=== PATIENT | female | born 1960 | race Hispanic/Latino ===

== ENCOUNTER 2019-04-06 15:28 | Inpatient (IN) | payer MEDICARE ==
--- NOTE | 2019-04-06 17:14 | Emergency Department Report ---
HPI - General Chief Complaint: Dizziness Time Seen by Provider: 04/06/19 16:44 - HPI HPI: Room 7 The patient is a 59-year-old female presenting with a chief complaint of chest pain. The patient is currently at [facility] under a 1013 for schizoaffe ctive disorder and psychosis. The sitter that accompanies the patient states she was sent here for evaluation of low blood pressure and chest pain. Transfer sheet states the patient was sent for "low BP, abnormal EKG, history of CHF." The patient states she had some cramping and bilateral thighs but denies chest pain or shortness of breath. Patient appears disorganized and is not a reliable historian. Location: [See above] Duration: [See above] Quality: [See above] Severity: [See above] Modifying factors: [see above] Context: [see above] Mode of transportation: [not driving] ED Past Medical Hx - Past Medical History Hx Hypertension: Yes Hx Congestive Heart Failure: Yes Hx Psychiatric Treatment: Yes (schizoaffective disorder) Additional medical history: Atrial fibrillation - Surgical History Past Surgical History?: No - Family History Family history: no significant - Social History Smoking Status: Unknown if ever smoked ED Review of Systems ROS: Stated complaint: LOW BP/ARRHYTHMIAS Other details as noted in HPI Comment: Unobtainable due to pts medical conditions Physical Exam - Physical Exam Vital Signs: Vital Signs 04/06/19 04/06/19 16:42 16:46 Pulse Rate 96 H 106 H Respiratory 16 20 Rate O2 Sat by Pulse 100 99 Oximetry Physical Exam: GENERAL: The patient is well-developed well-nourished female lying on stretcher not appearing to be in acute distress. [] HEENT: Normocephalic. Atraumatic. Extraocular motions are intact. Patient has moist mucous membranes. NECK: Supple. Trachea midline CHEST/LUNGS: Clear to auscultation. There is no respiratory distress noted. HEART/CARDIOVASCULAR: Regular. There is no tachycardia. There is no gallop rub or murmur. 2+ DPs bilaterally ABDOMEN: Abdomen is soft, nontender. Patient has normal bowel sounds. There is no abdominal distention. SKIN: There is no rash. There is no edema. There is no diaphoresis. NEURO: The patient is awake and alert but appears disoriented. The patient is cooperative. The patient has normal speech MUSCULOSKELETAL: There is no tenderness or deformity. There is no limitation range of motion. There is no evidence of acute injury. ED Course Vital Signs 04/06/19 04/06/19 16:42 16:46 Pulse Rate 96 H 106 H Respiratory 16 20 Rate O2 Sat by Pulse 100 99 Oximetry ED Medical Decision Making - Lab Data Result diagrams: 04/06/19 17:05 04/06/19 17:05 Laboratory Tests 04/06/19 04/06/19 04/06/19 17:05 17:05 17:05 WBC 7.1 RBC 3.82 Hgb 10.2 Hct 30.5 MCV 80 MCH 27 L MCHC 34 RDW 19.7 H Plt Count 136 L Lymph % (Auto) 20.3 [place] % (Auto) 8.6 H Eos % (Auto) 0.2 Baso % (Auto) 0.3 Lymph # 1.4 [place] # 0.6 Eos # 0.0 Baso # 0.0 Seg Neutrophils % 70.6 H Seg Neutrophils # 5.0 PT 16.4 H INR 1.36 H APTT 30.9 Sodium Potassium Chloride Carbon Dioxide Anion Gap BUN Creatinine Estimated GFR BUN/Creatinine Ratio Glucose Calcium Total Creatine Kinase 8474 H CK-MB (CK-2) 24.3 H CK-MB (CK-2) Rel Index 0.2 Troponin T NT-Pro-B Natriuret Pep 04/06/19 04/06/19 17:05 17:05 WBC RBC Hgb Hct MCV MCH MCHC RDW Plt Count Lymph % (Auto) [place] % (Auto) Eos % (Auto) Baso % (Auto) Lymph # [place] # Eos # Baso # Seg Neutrophils % Seg Neutrophils # PT INR APTT Sodium 137 Potassium 3.9 Chloride 101.3 Carbon Dioxide 23 Anion Gap 17 BUN 31 H Creatinine 1.3 H Estimated GFR 42 BUN/Creatinine Ratio 24 Glucose 123 H Calcium 8.6 Total Creatine Kinase CK-MB (CK-2) CK-MB (CK-2) Rel Index Troponin T < 0.010 NT-Pro-B Natriuret Pep 939.9 H - EKG Data -: EKG Interpreted by Me EKG shows normal: sinus rhythm Rate: normal - EKG Data When compared to previous EKG there are: previous EKG unavailable Interpretation: nonspecific ST-T wave rk (T-wave inversions in leads 2, 3, aVF, V4, V5, V6) - Differential Diagnosis ACS, pericarditis, GERD, psychosis Critical care attestation.: If time is entered above; I have spent that time in minutes in the direct care of this critically ill patient, excluding procedure time. ED Disposition Clinical Impression: Rhabdomyolysis, History of chest pain Disposition: OP ADMIT IP TO THIS HOSP Is pt being admited?: Yes Does the pt Need Aspirin: No Condition: Fair Referrals: ARCHANA CHACONKINDE MD RA [Primary Care Provider] - 3-5 Days Time of Disposition: 20:35 (hospitalist paged (Dr Youssef))
[2019-04-06 17:52] LABS: Creatine Kinase MB 24.3 ng/mL (0.0-4.0)
[2019-04-06 18:05] LABS: Hematocrit 30.5 % (30.3-42.9); Hemoglobin 10.2 gm/dl (10.1-14.3); Mean Corpuscular HGB Conc 34 % (30-34); Mean Corpuscular Volume 80 fl (79-97); Red Blood Count 3.82 M/mm3 (3.65-5.03); Red Cell Distribution Width 19.7 % (13.2-15.2)
[2019-04-06 18:06] LABS: Basophils % (Auto) 0.3 % (0.0-1.8); Eosinophils % (Auto) 0.2 % (0.0-4.3); Lymphocytes # (Auto) 1.4 K/mm3 (1.2-5.4); Lymphocytes % (Auto) 20.3 % (13.4-35.0); Monocytes # (Auto) 0.6 K/mm3 (0.0-0.8); Monocytes % (Auto) 8.6 % (0.0-7.3); Platelet Count 136 K/mm3 (140-440)
[2019-04-06 18:14] LABS: INR 1.36 (0.87-1.13); Partial Thromboplastin Time 30.9 Sec. (24.2-36.6)
--- NOTE | 2019-04-06 19:31 | XRay Report ---
PROCEDURE: XR CHEST 1V AP TECHNIQUE: Chest radiograph single view. HISTORY: chest pain COMPARISONS: None . FINDINGS: Heart: Normal. Mediastinum/Vessels: Normal. Lungs/Pleural space: Normal. Bony thorax: No acute osseous abnormality. Life support devices: None. IMPRESSION: No acute cardiopulmonary abnormality. This document is electronically signed by Sarah Portillo MD., April 06 2019 07:29:47 PM ET
[2019-04-06 20:12] LABS: Calcium 8.6 mg/dL (8.4-10.2)
[2019-04-06] MEDS ORDERED: NACL 0.9% 1000 ML 1,000 ML IV ONE (20:34)
[2019-04-06] MEDS ORDERED: ZOFRAN IV PRN (22:14)
[2019-04-06] MEDS ORDERED: TYLENOL PO PRN (22:14)
[2019-04-06] MEDS ORDERED: SODIUM CHLORIDE FLUSH SYRINGE 10 ML IV PRN (22:14)
--- NOTE | 2019-04-06 22:17 | History and Physical Report ---
History of Present Illness Date of examination: 04/06/19 History of present illness: 59 year old woman with a history of schizoaffective disorder, A. fib, CHF was sent to the emergency room from [place] for evaluation of low blood pressure and abnormal EKG per documentation on chart. The ER physician reported that he was told the patient complained of chest pain while at [place]. Patient states she was transferred from [facility] to [facility] today, she feels fine she denies chest pain. Patient is 1013 at [place] Review of systems Constitutional: no weight loss, chills, fever Ears, eyes, nose, mouth and throat: no nasal congestion, no nasal discharge, no sinus pressure, no vision change, no red eye. Neck: No neck pain or rigidity. Cardiovascular: no palpitations, chest pain Respiratory: no cough, shortness of breath Gastrointestinal: no hematochezia, abdominal pain Genitourinary : no frequency , no hematuria Musculoskeletal: no joint swelling or muscle ache Integumentary: no rash, no pruritis Neurological: no parathesias, no focal weakness Endocrine: no cold or heat intolerance, no polyuria or polydipsia Hematologic/Lymphatic: no easy bruising, no easy bleeding, no gland swelling Allergic/Immunologic: no urticaria, no angioedema. PAST MEDICAL HISTORY: schizoaffective disorder, A. fib, CHF PAST SURGICAL HISTORY: Cyst removal SOCIAL HISTORY:+ alcohol, +tobacco, + marijuana FAMILY HISTORY: Hypertension Medications and Allergies Allergies Allergy/AdvReac Type Severity Reaction Status Date / Time No Known Allergies Allergy Unverified 04/06/19 18:46 Home Medications Medication Instructions Recorded Confirmed Last Taken Type Aspirin BABY CHEW TAB 81 mg PO DAILY 04/06/19 04/06/19 04/06/19 09:00 History Haloperidol 2.5 mg PO Q8H PRN 04/06/19 04/06/19 Unknown History LORazepam 0.5 mg PO Q8H PRN 04/06/19 04/06/19 Unknown History Loratadine 10 mg PO DAILY PRN 04/06/19 04/06/19 Unknown History Metoprolol Xl 25 mg PO DAILY 04/06/19 04/06/19 04/06/19 09:00 History RisperDAL 1 mg PO BID 04/06/19 04/06/19 04/06/19 19:49 History diphenhydrAMINE 25 mg PO Q6H PRN 04/06/19 04/06/19 Unknown History traZODone 25 mg PO QHS PRN 04/06/19 04/06/19 Unknown History Acetaminophen [Acetaminophen TAB] 325 mg PO Q4H PRN #15 tablet 04/11/19 Unknown Rx Furosemide [Lasix TAB] 20 mg PO QDAY #20 tablet 04/11/19 Unknown Rx Lisinopril [Zestril TAB] 2.5 mg PO QDAY #20 tablet 04/11/19 Unknown Rx Metoprolol Xl [Metoprolol 25 mg PO QDAY #30 tablet 04/11/19 Unknown Rx SUCCINATE ER TAB] Potassium Chloride [Klor-Con 8] 8 meq PO QDAY #30 tablet 04/11/19 Unknown Rx Active Meds: Active Medications Enoxaparin Sodium (Lovenox) 30 mg SUB-Q QDAY KWAME Exam - Physical Exam Narrative exam: General Apperance: The patient lying in bed, breathing comfortable HEENT: Normocephalic, atraumatic. Pupils equally round and reactive to light, EOMI, no sclericterus or JVD or thyromegaly or nodule. , no carotid bruit, mucous membranes moist, no exudate or erythema Heart: S1-S2, regular is rhythm Lungs: Clear to auscultation bilaterally, breathing comfortable Abdomen: Positive bowel sounds, soft, nontender, nondistended, no organomegaly Extremities: No edema cyanosis clubbing Skin: no rash, nodule, warm and dry Neuro: cranial nerves 2-12 intact, speech is fluent, motor/sensory intact - Constitutional Vitals: Temp Pulse Resp BP Pulse Ox 98.8 F 114 H 16 106/51 100 04/06/19 17:46 04/06/19 18:30 04/06/19 18:30 04/06/19 18:30 04/06/19 18:30 Results - Labs CBC & Chem 7: 04/09/19 06:02 04/09/19 06:02 Labs: Abnormal lab results 04/06/19 04/06/19 04/06/19 Range/Units 17:05 17:05 17:05 MCH 27 L (28-32) pg RDW 19.7 H (13.2-15.2) % Plt Count 136 L (140-440) K/mm3 [place] % (Auto) 8.6 H (0.0-7.3) % Seg Neutrophils % 70.6 H (40.0-70.0) % PT 16.4 H (12.2-14.9) Sec. INR 1.36 H (0.87-1.13) BUN (7-17) mg/dL Creatinine (0.7-1.2) mg/dL Glucose (65-100) mg/dL Total Creatine Kinase 8474 H (30-135) units/L CK-MB (CK-2) 24.3 H (0.0-4.0) ng/mL NT-Pro-B Natriuret Pep (0-900) pg/mL 04/06/19 04/06/19 Range/Units 17:05 17:05 MCH (28-32) pg RDW (13.2-15.2) % Plt Count (140-440) K/mm3 [place] % (Auto) (0.0-7.3) % Seg Neutrophils % (40.0-70.0) % PT (12.2-14.9) Sec. INR (0.87-1.13) BUN 31 H (7-17) mg/dL Creatinine 1.3 H (0.7-1.2) mg/dL Glucose 123 H (65-100) mg/dL Total Creatine Kinase (30-135) units/L CK-MB (CK-2) (0.0-4.0) ng/mL NT-Pro-B Natriuret Pep 939.9 H (0-900) pg/mL - Imaging and Cardiology EKG: image reviewed Chest x-ray: report reviewed Assessment and Plan Assessment Relative Hypotension Rhabdomyolysis Possible chest pain Schizoaffective disorder h/o A. fib CHF, stable Plan Admit to medicine Start gentle IV fluid, check cardiac enzymes Consult cardiology will hold antihypertensives Check urinalysis, blood culture, empiric IV Rocephin DVT prophylaxis
[2019-04-06] MEDS ORDERED: NACL 0.9% 1000 ML 1,000 ML ONE (22:24)
[2019-04-06] MEDS ORDERED: CEFTRIAXONE IV SCH (23:00)
[2019-04-06] MEDS ORDERED: NACL 0.9% IV SCH (23:00)
[2019-04-07] MEDS: NACL 0.45% 1000 ML 1,000 ML IV SCH (00:16)
[2019-04-07 00:40] LABS: Creatine Kinase MB 12.6 ng/mL (0.0-4.0)
[2019-04-07 05:10] LABS: Basophils % (Auto) 0.2 % (0.0-1.8); Eosinophils % (Auto) 0.8 % (0.0-4.3); Hematocrit 26.6 % (30.3-42.9); Hemoglobin 8.9 gm/dl (10.1-14.3); Lymphocytes # (Auto) 1.2 K/mm3 (1.2-5.4); Lymphocytes % (Auto) 20.6 % (13.4-35.0); Mean Corpuscular HGB Conc 34 % (30-34); Mean Corpuscular Volume 80 fl (79-97); Monocytes # (Auto) 0.6 K/mm3 (0.0-0.8); Monocytes % (Auto) 9.5 % (0.0-7.3); Platelet Count 115 K/mm3 (140-440); Red Blood Count 3.33 M/mm3 (3.65-5.03); Red Cell Distribution Width 19.3 % (13.2-15.2)
[2019-04-07 05:21] LABS: Creatine Kinase MB 8.6 ng/mL (0.0-4.0)
[2019-04-07 05:46] LABS: BUN/Creatinine Ratio 32; Blood Urea Nitrogen 29 mg/dL (7-17); Calcium 8.3 mg/dL (8.4-10.2); Hemolysis Index 4
[2019-04-07] MEDS: BABY ASPIRIN PO SCH (09:14)
[2019-04-07] MEDS: RisperDAL PO SCH ×2 (09:14→21:26)
[2019-04-07] MEDS: SODIUM CHLORIDE FLUSH SYRINGE 10 ML IV SCH ×2 (09:24→21:26)
[2019-04-07] MEDS ORDERED: LOVENOX SUB-Q SCH (10:00)
[2019-04-07] MEDS: ROCEPHIN/NS 1 GM/50 ML 1 GM/50 ML BAG IV SCH (10:45)
--- NOTE | 2019-04-07 11:44 | Consultation ---
History of Present Illness Consult date: 04/07/19 Consult reason: chest pain History of present illness: Patient is a 59-year old woman that was transferred to the emergency department from [place] with hypotension, blood pressure of 88/50. A cardiac consultation has been requested for chest pain evaluation. Patient denies chest pain. Patient denies shortness of breath and palpitations. There was no syncope. Cardiac enzymes shows an elevated CK of 8474 but a normal relative index of 0.2 cons istent with rhabdomyolysis. An EKG is sinus rhythm with non-specific [place] abnormalities. Patient gives a history of nonischemic cardiomyopathy by cardiac cath done a year ago at [place] that documents normal coronaries but a decreased left ventricular ejection fraction of 10%. Patient is followed by the Heart Failure clinic at [place] and reports she was recommended for an ICD placement but she declined. Medications and Allergies Allergies Allergy/AdvReac Type Severity Reaction Status Date / Time No Known Allergies Allergy Unverified 04/06/19 18:46 Home Medications Medication Instructions Recorded Confirmed Last Taken Type Aspirin BABY CHEW TAB 81 mg PO DAILY 04/06/19 04/06/19 04/06/19 09:00 History Cepacol Sorethroat-Cough Mila 1 lozenge PO Q3HR PRN 04/06/19 04/06/19 Unknown History Diphenhydramine HCl 25 mg IM Q6H PRN 04/06/19 04/06/19 Unknown History Haldol 2 mg IM Q8H PRN 04/06/19 04/06/19 Unknown History Haloperidol 2.5 mg PO Q8H PRN 04/06/19 04/06/19 Unknown History Imodium 2 mg PO Q6H PRN 04/06/19 04/06/19 Unknown History LORazepam 0.5 mg IM Q8H PRN 04/06/19 04/06/19 Unknown History LORazepam 0.5 mg PO Q8H PRN 04/06/19 04/06/19 Unknown History Loratadine 10 mg PO DAILY PRN 04/06/19 04/06/19 Unknown History Maalox Advanced Suspension 5 ml PO Q2HR PRN 04/06/19 04/06/19 Unknown History Metoprolol Xl 25 mg PO DAILY 04/06/19 04/06/19 04/06/19 09:00 History Milk of Magnesia 30 ml PO DAILY PRN 04/06/19 04/06/19 Unknown History Promethazine 25 mg PO Q4H PRN 04/06/19 04/06/19 Unknown History RisperDAL 1 mg PO BID 04/06/19 04/06/19 04/06/19 19:49 History Spironolactone [Aldactone] 25 mg PO DAILY 04/06/19 04/06/19 04/06/19 09:00 History cloNIDine 0.1 mg PO Q8H PRN 04/06/19 04/06/19 Unknown History diphenhydrAMINE 25 mg PO Q6H PRN 04/06/19 04/06/19 Unknown History hydrOXYzine 25 mg PO Q8H PRN 04/06/19 04/06/19 Unknown History traZODone 25 mg PO QHS PRN 04/06/19 04/06/19 Unknown History Active Meds: Active Medications Acetaminophen (Tylenol) 650 mg PO Q4H PRN PRN Reason: Pain MILD(1-3)/Fever >100.5/MICHAEL Aspirin (Baby Aspirin) 81 mg PO DAILY [facility] Last Admin: 04/07/19 09:14 Dose: 81 mg Documented by: Sodium Chloride (Nacl 0.45% 1000 Ml) 1,000 mls @ 50 mls/hr IV DIRECT [facility] Last Admin: 04/07/19 00:16 Dose: 50 mls/hr Documented by: Ceftriaxone Sodium (Rocephin/Ns 1 Gm/50 Ml) 1 gm in 50 mls @ 100 mls/hr IV Q24HR [facility] Last Admin: 04/07/19 10:45 Dose: 100 mls/hr Documented by: Ondansetron HCl (Zofran) 4 mg IV Q8H PRN PRN Reason: Nausea And Vomiting Risperidone (Risperdal) 1 mg PO BID [facility] Last Admin: 04/07/19 09:14 Dose: 1 mg Documented by: Sodium Chloride (Sodium Chloride Flush Syringe 10 Ml) 10 ml IV BID [facility] Last Admin: 04/07/19 09:24 Dose: 10 ml Documented by: Sodium Chloride (Sodium Chloride Flush Syringe 10 Ml) 10 ml IV PRN PRN PRN Reason: LINE FLUSH Physical Examination Vital Signs Pulse Resp Pulse Ox 96 H 16 100 04/06/19 16:42 04/06/19 16:42 04/06/19 16:42 General appearance: no acute distress HEENT: Positive: PERRL Neck: Positive: trachea midline Cardiac: Positive: Reg Rate and Rhythm Lungs: Positive: Decreased Breath Sounds Neuro: Positive: Grossly Intact Extremities: Absent: edema Results 04/07/19 04:35 04/07/19 04:35 Cardiac Enzymes 04/06/19 04/07/19 Range/Units 17:05 04:35 CK-MB (CK-2) 24.3 H 8.6 H (0.0-4.0) ng/mL Coagulation 04/06/19 Range/Units 17:05 PT 16.4 H (12.2-14.9) Sec. INR 1.36 H (0.87-1.13) APTT 30.9 (24.2-36.6) Sec. CBC 04/06/19 04/07/19 Range/Units 17:05 04:35 WBC 7.1 5.9 (4.5-11.0) K/mm3 RBC 3.82 3.33 L (3.65-5.03) M/mm3 Hgb 10.2 8.9 L (10.1-14.3) gm/dl Hct 30.5 26.6 L (30.3-42.9) % Plt Count 136 L 115 L (140-440) K/mm3 Lymph # 1.4 1.2 (1.2-5.4) K/mm3 [place] # 0.6 0.6 (0.0-0.8) K/mm3 Eos # 0.0 0.0 (0.0-0.4) K/mm3 Baso # 0.0 0.0 (0.0-0.1) K/mm3 Comprehensive Metabolic Panel 04/06/19 04/07/19 Range/Units 17:05 04:35 Sodium 137 138 (137-145) mmol/L Potassium 3.9 3.6 (3.6-5.0) mmol/L Chloride 101.3 106.2 (98-107) mmol/L Carbon Dioxide 23 21 L (22-30) mmol/L BUN 31 H 29 H (7-17) mg/dL Creatinine 1.3 H 0.9 (0.7-1.2) mg/dL Glucose 123 H 150 H (65-100) mg/dL Calcium 8.6 8.3 L (8.4-10.2) mg/dL Assessment and Plan Hypotension Schizophrenia Rhabdomyolysis
--- NOTE | 2019-04-07 14:51 | Progress Note ---
Assessment and Plan Assessment and plan: Patient is a 59 yo woman with a history of Dilated Non ischemic Cardiomyopathy, CHF, EF 16%, Schizophrenia who was transferred from [facility] facility because of low blood pressure, 88/50. Cardiac enzymes shows an elevated CK of 8474 but a normal relative index of 0.2 consistent with rhabdomyolysis. Assessment Relative Hypotension Rhabdomyolysis Possible chest pain Schizoaffective disorder h/o A. fib CHF, stable Plan Admit to medicine Start gentle IV fluid, check cardiac enzymes Consult cardiology will hold antihypertensives Check urinalysis, blood culture, empiric IV Rocephin DVT prophylaxis d/c back to psych once rhabdo resolves consult Psych History Interval history: Patient was seen and examined. Follow-up on current diagnosis. No new issues reported to me. Patient denies any chest pain, shortness breath, nausea/vomiting or severe headaches. Imaging, nursing note, chart, labs and old chart reviewed. Discussed with patient. Hospitalist Physical - Physical exam Narrative exam: Gen: WDWN, NAD, Awake, Alert, Orientated HEENT: NCAT, EOMI, PERRL, OP Clear Neck: supple, no adenopathy, no thyromegaly, no JVD CVS/Heart: RRR, normal S1S2, pulses present bilaterally Chest/Lungs: CTA B, Symmetrical chest expansion, good air entry bilaterally GI/Abdomen: soft, NTND, good bowel sounds, no guarding or rebound /Bladder: no suprapubic tenderness, no CVA or paraspinal tenderness Extermity/Skin: no c/c/e, no obvious rash MSK: FROM x 4 Neuro: CN 2-12 grossly intact, no new focal deficits Psych: calm - Constitutional Vitals: Temp Pulse Resp BP Pulse Ox 98.9 F 102 H 16 101/51 98 04/07/19 08:55 04/07/19 08:55 04/07/19 08:55 04/07/19 08:55 04/07/19 11:28 General appearance: Present: no acute distress Results - Labs CBC & Chem 7: 04/07/19 04:35 04/07/19 04:35 Labs: Laboratory Last Values WBC 5.9 K/mm3 (4.5-11.0) 04/07/19 04:35 RBC 3.33 M/mm3 (3.65-5.03) L 04/07/19 04:35 Hgb 8.9 gm/dl (10.1-14.3) L 04/07/19 04:35 Hct 26.6 % (30.3-42.9) L 04/07/19 04:35 MCV 80 fl (79-97) 04/07/19 04:35 MCH 27 pg (28-32) L 04/07/19 04:35 MCHC 34 % (30-34) 04/07/19 04:35 RDW 19.3 % (13.2-15.2) H 04/07/19 04:35 Plt Count 115 K/mm3 (140-440) L 04/07/19 04:35 Lymph % (Auto) 20.6 % (13.4-35.0) 04/07/19 04:35 [place] % (Auto) 9.5 % (0.0-7.3) H 04/07/19 04:35 Eos % (Auto) 0.8 % (0.0-4.3) 04/07/19 04:35 Baso % (Auto) 0.2 % (0.0-1.8) 04/07/19 04:35 Lymph # 1.2 K/mm3 (1.2-5.4) 04/07/19 04:35 [place] # 0.6 K/mm3 (0.0-0.8) 04/07/19 04:35 Eos # 0.0 K/mm3 (0.0-0.4) 04/07/19 04:35 Baso # 0.0 K/mm3 (0.0-0.1) 04/07/19 04:35 Seg Neutrophils % 68.9 % (40.0-70.0) 04/07/19 04:35 Seg Neutrophils # 4.1 K/mm3 (1.8-7.7) 04/07/19 04:35 PT 16.4 Sec. (12.2-14.9) H 04/06/19 17:05 INR 1.36 (0.87-1.13) H 04/06/19 17:05 APTT 30.9 Sec. (24.2-36.6) 04/06/19 17:05 Sodium 138 mmol/L (137-145) 04/07/19 04:35 Potassium 3.6 mmol/L (3.6-5.0) 04/07/19 04:35 Chloride 106.2 mmol/L (98-107) 04/07/19 04:35 Carbon Dioxide 21 mmol/L (22-30) L 04/07/19 04:35 14 mmol/L 04/07/19 04:35 BUN 29 mg/dL (7-17) H 04/07/19 04:35 0.9 mg/dL (0.7-1.2) 04/07/19 04:35 Estimated GFR > 60 ml/min 04/07/19 04:35 32 % 04/07/19 04:35 Glucose 150 mg/dL (65-100) H 04/07/19 04:35 Calcium 8.3 mg/dL (8.4-10.2) L 04/07/19 04:35 5754 units/L (30-135) H 04/07/19 04:35 CK-MB (CK-2) 8.6 ng/mL (0.0-4.0) H 04/07/19 04:35 CK-MB (CK-2) Rel Index 0.1 (0-4) 04/07/19 04:35 < 0.010 ng/mL (0.00-0.029) 04/07/19 04:35 NT-Pro-B Natriuret Pep 939.9 pg/mL (0-900) H 04/06/19 17:05 Active Medications - Current Medications Current Medications: Generic Name Dose Route Start Last Admin Trade Name Freq PRN Reason Stop Dose Admin Acetaminophen 650 mg 04/06/19 22:14 Tylenol PO Q4H PRN Pain MILD(1-3)/Fever >100.5/MICHAEL Aspirin 81 mg 04/07/19 10:00 04/07/19 09:14 Baby Aspirin PO 81 mg DAILY KWAME Administration Sodium Chloride 1,000 mls @ 50 mls/hr 04/06/19 23:00 04/07/19 00:16 Nacl 0.45% 1000 Ml IV 50 mls/hr DIRECT KWAME Administration Ceftriaxone Sodium 1 gm in 50 mls @ 100 mls/hr 04/07/19 10:00 04/07/19 10:45 Rocephin/Ns 1 Gm/50 Ml IV 100 mls/hr Q24HR KWAME Administration Ondansetron HCl 4 mg 04/06/19 22:14 Zofran IV Q8H PRN Nausea And Vomiting Risperidone 1 mg 04/07/19 10:00 04/07/19 09:14 Risperdal PO 1 mg BID KWAME Administration Sodium Chloride 10 ml 04/07/19 10:00 04/07/19 09:24 Sodium Chloride Flush Syringe 10 Ml IV 10 ml BID KWAME Administration Sodium Chloride 10 ml 04/06/19 22:14 Sodium Chloride Flush Syringe 10 Ml IV PRN PRN LINE FLUSH
[2019-04-07 19:30] LABS: Bacteria,Urine 1+ /HPF (Negative); Bilirubin,Urine NEG (Negative); Blood,Urine NEG (Negative); Color,Urine Yellow (Yellow); Mucus,Urine FEW /HPF; Protein,Urine <15 mg/dL mg/dL (Negative)
[2019-04-08] MEDS ORDERED: RESTORIL PO PRN (00:26)
--- NOTE | 2019-04-08 10:12 | Progress Note ---
<MONICA GASTON - Last Filed: 04/08/19 10:08> Assessment and Plan Hypotension -resolved Schizophrenia Rhabdomyolysis Hx of dilated nonischemic cardiomyopathy LHC at [facility], [place] 04/2018 reports angiographically normal coronary arteries. Echocardiogram done 12/2018 at [place] reported a left ventricular systolic ejection fraction of 16%. Her medical records from [place] show that she has been offered an ICD implant in the past but declined. Recommendations: Medical therapy for chronic systolic heart failure as her blood pressure will allow. Otherwise, conservative cardiac management. Subjective Date of service: 04/08/19 Interval history: Patient is resting in bed comfortably. She has no complaints. BP currently 119/63. Objective Vital Signs Temp Pulse Pulse Resp BP Pulse Ox 04/08/19 05:57 98.9 F 119 H 20 119/63 99 04/07/19 23:42 99.4 F 115 H 20 120/53 94 04/07/19 22:15 105 H 18 98 04/07/19 20:19 99.9 F H 105 H 20 104/51 98 04/07/19 19:38 88 04/07/19 16:00 105 H 04/07/19 15:55 100.0 F H 91 H 14 107/47 98 04/07/19 12:03 98.7 F 91 H 18 98 04/07/19 12:02 98.7 F 87 18 93/43 99 04/07/19 11:28 98 - Physical Examination General: No Apparent Distress HEENT: Positive: PERRL Neck: Positive: trachea midline Cardiac: Positive: Reg Rate and Rhythm Lungs: Positive: Decreased Breath Sounds Neuro: Positive: Grossly Intact Extremities: Absent: edema <DICK DHALIWAL - Last Filed: 04/08/19 12:27> Assessment and Plan I have seen and evaluated the patient and agree with the assessment and plan. Patient has a history of dilated nonischemic cardiomyopathy. Patient had a left heart catheterization April 2018 that showed angiographically normal coronary arteries. Patient's most recent echocardiogram done December 2018 shows left ventricular systolic ejection fraction of 16%. On interviewing the patient she seems very confused and is not able to hold a coherent conversation as it relates to her medical health. At this time we'll continue current medical therapy for chronic systolic heart failure. Patient is not able to well- tolerated her medications at this time due to hypotension, which is likely due to her severe cardiomyopathy. Objective Vital Signs Temp Pulse Pulse Resp BP Pulse Ox 04/08/19 11:47 98 04/08/19 08:00 112 H 107 H 04/08/19 05:57 98.9 F 119 H 20 119/63 99 04/07/19 23:42 99.4 F 115 H 20 120/53 94 04/07/19 22:15 105 H 18 98 04/07/19 20:19 99.9 F H 105 H 20 104/51 98 04/07/19 19:38 88 04/07/19 16:00 105 H 04/07/19 15:55 100.0 F H 91 H 14 107/47 98
[2019-04-08] MEDS: RisperDAL PO SCH ×2 (10:49→21:33)
[2019-04-08] MEDS: BABY ASPIRIN PO SCH (10:49)
[2019-04-08] MEDS: SODIUM CHLORIDE FLUSH SYRINGE 10 ML IV SCH (10:50)
[2019-04-08] MEDS: ROCEPHIN/NS 1 GM/50 ML 1 GM/50 ML BAG IV SCH (10:50)
--- NOTE | 2019-04-08 13:17 | Consultation ---
History of Present Illness - Reason for Consult Consult date: 04/08/19 Reason for consult: psychiatric evaluation - Chief Complaint Chief complaint: "I was sent here." - History of Present Psychiatric Illness 59 year old AAF seen for psychiatric evaluation on the telemetry floor. She has a history of Dilated Non ischemic Cardiomyopathy, CHF, EF 16%, Schizophrenia who was transferred from [place] [facility] facility because of low blood pressure, 88/50. CK of 8474 and admitted for rhabdomyolysis. CK is trending down. She discussed her history and spoke of the recent situation at home. She states on Saturday she remembers she tried to speak but nothing came out. She states this has never happened before. She states she was frustrated at home with her children this past weekend because they do not respect her in her own home. She also says she does not have an outlet and needs a counselor. She says her "thoughts were running wild" and then she went to [place]. At the time she says she was not aware it was a psychiatric hospital but became aware yesterday. She reports being diagnosed with paranoid schizophrenia years ago but it was changed to schizoaffective disorder, depressive type. She last saw a psychiatrist one year ago. She reports hearing voices daily and sometimes louder than other times. She says sometimes the tv talks to her. Medications and Allergies Allergies Allergy/AdvReac Type Severity Reaction Status Date / Time No Known Allergies Allergy Unverified 04/06/19 18:46 Home Medications Medication Instructions Recorded Confirmed Last Taken Type Aspirin BABY CHEW TAB 81 mg PO DAILY 04/06/19 04/06/19 04/06/19 09:00 History Cepacol Sorethroat-Cough Mila 1 lozenge PO Q3HR PRN 04/06/19 04/06/19 Unknown History Diphenhydramine HCl 25 mg IM Q6H PRN 04/06/19 04/06/19 Unknown History Haldol 2 mg IM Q8H PRN 04/06/19 04/06/19 Unknown History Haloperidol 2.5 mg PO Q8H PRN 04/06/19 04/06/19 Unknown History Imodium 2 mg PO Q6H PRN 04/06/19 04/06/19 Unknown History LORazepam 0.5 mg IM Q8H PRN 04/06/19 04/06/19 Unknown History LORazepam 0.5 mg PO Q8H PRN 04/06/19 04/06/19 Unknown History Loratadine 10 mg PO DAILY PRN 04/06/19 04/06/19 Unknown History Maalox Advanced Suspension 5 ml PO Q2HR PRN 04/06/19 04/06/19 Unknown History Metoprolol Xl 25 mg PO DAILY 04/06/19 04/06/19 04/06/19 09:00 History Milk of Magnesia 30 ml PO DAILY PRN 04/06/19 04/06/19 Unknown History Promethazine 25 mg PO Q4H PRN 04/06/19 04/06/19 Unknown History RisperDAL 1 mg PO BID 04/06/19 04/06/19 04/06/19 19:49 History Spironolactone [Aldactone] 25 mg PO DAILY 04/06/19 04/06/19 04/06/19 09:00 History cloNIDine 0.1 mg PO Q8H PRN 04/06/19 04/06/19 Unknown History diphenhydrAMINE 25 mg PO Q6H PRN 04/06/19 04/06/19 Unknown History hydrOXYzine 25 mg PO Q8H PRN 04/06/19 04/06/19 Unknown History traZODone 25 mg PO QHS PRN 04/06/19 04/06/19 Unknown History Active Meds: Active Medications Acetaminophen (Tylenol) 650 mg PO Q4H PRN PRN Reason: Pain MILD(1-3)/Fever >100.5/MICHAEL Aspirin (Baby Aspirin) 81 mg PO DAILY [facility] Last Admin: 04/08/19 10:49 Dose: 81 mg Documented by: Sodium Chloride (Nacl 0.45% 1000 Ml) 1,000 mls @ 50 mls/hr IV DIRECT [facility] Last Admin: 04/07/19 00:16 Dose: 50 mls/hr Documented by: Ceftriaxone Sodium (Rocephin/Ns 1 Gm/50 Ml) 1 gm in 50 mls @ 100 mls/hr IV Q24HR [facility] Last Admin: 04/08/19 10:50 Dose: 100 mls/hr Documented by: Ondansetron HCl (Zofran) 4 mg IV Q8H PRN PRN Reason: Nausea And Vomiting Risperidone (Risperdal) 1 mg PO BID [facility] Last Admin: 04/08/19 10:49 Dose: 1 mg Documented by: Sodium Chloride (Sodium Chloride Flush Syringe 10 Ml) 10 ml IV BID [facility] Last Admin: 04/08/19 10:50 Dose: 10 ml Documented by: Sodium Chloride (Sodium Chloride Flush Syringe 10 Ml) 10 ml IV PRN PRN PRN Reason: LINE FLUSH Temazepam (Restoril) 15 mg PO QHS PRN PRN Reason: Sleep Past psychiatric history - past Psychiatric treatment and history Psych: Schizophrenia psychiatric treatment history: last saw a psychiatrist one year ago. diagnosed with schizophrenia years ago and was changed to schizoaffective disorder - Social History Social history: lives with family Mental Status Exam - Vital signs Last Vital Signs Temp 98.9 F 04/08/19 05:57 Pulse 107 H 04/08/19 08:00 Resp 20 04/08/19 05:57 BP 119/63 04/08/19 05:57 Pulse Ox 98 04/08/19 11:47 - Exam Orientation: time, place, person Affect: normal Mood: calm Thought content: other (says tv talks to her sometimes) Thought Process: Loose Associations (mild, mostly linear) Perceptions: auditory (chronic. non command) Speech: slurring Concentration: distractible Motor activity: normal Level of consciousness: alert Memory: Intact (she recalls the weekend but did not know she was at a psychiatric hospital until yesterday) Sleep Symptoms: None Interaction: cooperative Results Result Diagrams: 04/07/19 04:35 04/07/19 04:35 Abnormal lab results 04/07/19 Range/Units 18:45 Urine WBC (Auto) 150.0 H (0.0-6.0) /HPF All other labs normal. Assessment and Plan Assessment and plan: Impression: disorganized thought process likely improving schizoaffective disorder, unspecified by history rhabdomyolysis addressed by medical team She reports an episode of attempting to speak but "nothing came out" on 04/05. She states this never occurred before. Her nurse, Mariya, was informed. Recommendations: Her ck is trending down and she is not having adverse effects to risperdal. The benefit of continuing it at 1mg bid is greater than the risks. Continue 1013 dispo: psych will see daily to for medication management and to determine if she continues to meet criteria for 1013. The current plan is for her to go to an inpatient psychiatric facility staffed with Dr. Figueroa
[2019-04-08] MEDS: NACL 0.45% 1000 ML 1,000 ML IV SCH (14:13)
--- NOTE | 2019-04-08 15:59 | Progress Note ---
Assessment and Plan Assessment and plan: Patient is a 59 yo woman with a history of Dilated Non ischemic Cardiomyopathy, CHF, EF 16%, Schizophrenia who was transferred from [place] [facility] facility because of low blood pressure, 88/50. Cardiac enzymes shows an elevated CK of 8474 but a normal relative index of 0.2 consistent with rhabdomyolysis. Relative Hypotension, resolved: hold antihypertensives Rhabdomyolysis: continue to treat with ivf, daily CPK levels, Patient denies any chest pain: continue to monitor Schizoaffective disorder: psych team is following, on 1012 with a sitter h/o A. fib: tele monitor advised but pt refuses to keep monitor on. h/o CHF, stable: closely monitor on IVFs d/c back to inpatient psych once rhabdo resolves, CPK <1000 History Interval history: Patient was seen and examined. Follow-up on current diagnosis Rhabdo. No new issues reported to me. Patient denies any chest pain, shortness breath, nausea/vomiting or severe headaches. Imaging, nursing note, chart, labs and old chart reviewed. Discussed with patient. Hospitalist Physical - Physical exam Narrative exam: Gen: WDWN, NAD, Awake, Alert, Orientated HEENT: NCAT, EOMI, PERRL, OP Clear Neck: supple, no adenopathy, no thyromegaly, no JVD CVS/Heart: RRR, normal S1S2, pulses present bilaterally Chest/Lungs: CTA B, Symmetrical chest expansion, good air entry bilaterally GI/Abdomen: soft, NTND, good bowel sounds, no guarding or rebound /Bladder: no suprapubic tenderness, no CVA or paraspinal tenderness Extermity/Skin: no c/c/e, no obvious rash MSK: FROM x 4 Neuro: CN 2-12 grossly intact, no new focal deficits Psych: agitated, hearing voices, difficult to re-direct - Constitutional Vitals: Temp Pulse Resp BP Pulse Ox 98.9 F 107 H 20 119/63 98 04/08/19 05:57 04/08/19 08:00 04/08/19 05:57 04/08/19 05:57 04/08/19 11:47 General appearance: Present: no acute distress Results - Labs CBC & Chem 7: 04/07/19 04:35 04/07/19 04:35 Labs: Laboratory Last Values WBC 5.9 K/mm3 (4.5-11.0) 04/07/19 04:35 RBC 3.33 M/mm3 (3.65-5.03) L 04/07/19 04:35 Hgb 8.9 gm/dl (10.1-14.3) L 04/07/19 04:35 Hct 26.6 % (30.3-42.9) L 04/07/19 04:35 MCV 80 fl (79-97) 04/07/19 04:35 MCH 27 pg (28-32) L 04/07/19 04:35 MCHC 34 % (30-34) 04/07/19 04:35 RDW 19.3 % (13.2-15.2) H 04/07/19 04:35 Plt Count 115 K/mm3 (140-440) L 04/07/19 04:35 Lymph % (Auto) 20.6 % (13.4-35.0) 04/07/19 04:35 [place] % (Auto) 9.5 % (0.0-7.3) H 04/07/19 04:35 Eos % (Auto) 0.8 % (0.0-4.3) 04/07/19 04:35 Baso % (Auto) 0.2 % (0.0-1.8) 04/07/19 04:35 Lymph # 1.2 K/mm3 (1.2-5.4) 04/07/19 04:35 [place] # 0.6 K/mm3 (0.0-0.8) 04/07/19 04:35 Eos # 0.0 K/mm3 (0.0-0.4) 04/07/19 04:35 Baso # 0.0 K/mm3 (0.0-0.1) 04/07/19 04:35 Seg Neutrophils % 68.9 % (40.0-70.0) 04/07/19 04:35 Seg Neutrophils # 4.1 K/mm3 (1.8-7.7) 04/07/19 04:35 PT 16.4 Sec. (12.2-14.9) H 04/06/19 17:05 INR 1.36 (0.87-1.13) H 04/06/19 17:05 APTT 30.9 Sec. (24.2-36.6) 04/06/19 17:05 Sodium 138 mmol/L (137-145) 04/07/19 04:35 Potassium 3.6 mmol/L (3.6-5.0) 04/07/19 04:35 Chloride 106.2 mmol/L (98-107) 04/07/19 04:35 Carbon Dioxide 21 mmol/L (22-30) L 04/07/19 04:35 14 mmol/L 04/07/19 04:35 BUN 29 mg/dL (7-17) H 04/07/19 04:35 0.9 mg/dL (0.7-1.2) 04/07/19 04:35 Estimated GFR > 60 ml/min 04/07/19 04:35 32 % 04/07/19 04:35 Glucose 150 mg/dL (65-100) H 04/07/19 04:35 Calcium 8.3 mg/dL (8.4-10.2) L 04/07/19 04:35 5754 units/L (30-135) H 04/07/19 04:35 CK-MB (CK-2) 8.6 ng/mL (0.0-4.0) H 04/07/19 04:35 CK-MB (CK-2) Rel Index 0.1 (0-4) 04/07/19 04:35 < 0.010 ng/mL (0.00-0.029) 04/07/19 04:35 NT-Pro-B Natriuret Pep 939.9 pg/mL (0-900) H 04/06/19 17:05 Yellow (Yellow) 04/07/19 18:45 Slightly-cloudy (Clear) 04/07/19 18:45 5.0 (5.0-7.0) 04/07/19 18:45 Ur Specific [place] 1.021 (1.003-1.030) 04/07/19 18:45 <15 mg/dl mg/dL (Negative) 04/07/19 18:45 Neg mg/dL (Negative) 04/07/19 18:45 Neg mg/dL (Negative) 04/07/19 18:45 Neg (Negative) 04/07/19 18:45 Neg (Negative) 04/07/19 18:45 Neg (Negative) 04/07/19 18:45 2.0 mg/dL (<2.0) 04/07/19 18:45 Ur Leukocyte Esterase Lg (Negative) 04/07/19 18:45 150.0 /HPF (0.0-6.0) H 04/07/19 18:45 4.0 /HPF (0.0-6.0) 04/07/19 18:45 U Epithel Cells (Auto) 8.0 /HPF (0-13.0) 04/07/19 18:45 1+ /HPF (Negative) 04/07/19 18:45 Few /HPF 04/07/19 18:45 Active Medications - Current Medications Current Medications: Generic Name Dose Route Start Last Admin Trade Name Freq PRN Reason Stop Dose Admin Acetaminophen 650 mg 04/06/19 22:14 Tylenol PO Q4H PRN Pain MILD(1-3)/Fever >100.5/MICHAEL Aspirin 81 mg 04/07/19 10:00 04/08/19 10:49 Baby Aspirin PO 81 mg DAILY [facility] Administration Sodium Chloride 1,000 mls @ 50 mls/hr 04/06/19 23:00 04/08/19 14:13 Nacl 0.45% 1000 Ml IV 50 mls/hr DIRECT [facility] Administration Ceftriaxone Sodium 1 gm in 50 mls @ 100 mls/hr 04/07/19 10:00 04/08/19 10:50 Rocephin/Ns 1 Gm/50 Ml IV 100 mls/hr Q24HR [facility] Administration Ondansetron HCl 4 mg 04/06/19 22:14 Zofran IV Q8H PRN Nausea And Vomiting Risperidone 1 mg 04/07/19 10:00 04/08/19 10:49 Risperdal PO 1 mg BID [facility] Administration Sodium Chloride 10 ml 04/07/19 10:00 04/08/19 10:50 Sodium Chloride Flush Syringe 10 Ml IV 10 ml BID [facility] Administration Sodium Chloride 10 ml 04/06/19 22:14 Sodium Chloride Flush Syringe 10 Ml IV PRN PRN LINE FLUSH Temazepam 15 mg 04/08/19 00:26 Restoril PO QHS PRN Sleep Nutrition/Malnutrition Assess - Dietary Evaluation Nutrition/Malnutrition Findings: Nutrition Notes Start: 04/07/19 15:24 Freq: Status: Active Protocol: Document 06/18/19 15:24 RM (Rec: 04/07/19 15:29 RM [id number]) Nutrition Notes Need for Assessment generated from: MD Order Initial or Follow up Brief Note Other Pertinent Diagnosis Schizoaffetive disorder Current Diet Cardiac w/Ensure Enlive Vanilla Labs/Tests Reviewed Pertinent Medications Reviewed Height 5 ft 6 in Weight 61.235 kg Usual Body Weight 95.91 kg [place] Body Weight (kg) 59.09 BMI 21.7 Weight change and time frame 36% wt loss since sometime in 2017 Subjective/Other Information Consulted for poor oral intake and ONS diet. 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 Stated that she eats most of her meals. Stated UBW was 211 lbs sometime in 2017. Burn Absent Trauma Absent Nutrition Intervention Add Supplement/Snack (indicate name/kcal D/C Ensure Enlive /protein ) Revisit per MD consult or patient Sign Off request:
[2019-04-09 06:22] LABS: Hemoglobin 8.6 gm/dl (10.1-14.3); Mean Corpuscular HGB Conc 34 % (30-34); Mean Corpuscular Volume 80 fl (79-97); Platelet Count 127 K/mm3 (140-440); Red Blood Count 3.12 M/mm3 (3.65-5.03); Red Cell Distribution Width 19.1 % (13.2-15.2)
[2019-04-09 07:05] LABS: BUN/Creatinine Ratio 23; Blood Urea Nitrogen 14 mg/dL (7-17); Calcium 8.3 mg/dL (8.4-10.2); Hemolysis Index 2
[2019-04-09] MEDS: BABY ASPIRIN PO SCH (09:23)
[2019-04-09] MEDS: RisperDAL PO SCH ×2 (09:23→21:01)
[2019-04-09] MEDS: SODIUM CHLORIDE FLUSH SYRINGE 10 ML IV SCH ×2 (09:23→21:01)
[2019-04-09] MEDS: ROCEPHIN/NS 1 GM/50 ML 1 GM/50 ML BAG IV SCH (09:25)
--- NOTE | 2019-04-09 10:49 | Progress Note ---
Assessment and Plan Hypotension -resolved Schizophrenia Rhabdomyolysis Hx of dilated nonischemic cardiomyopathy LHC at [facility] 04/2018 reports angiographically normal coronary arteries. Echocardiogram done 12/2018 at [place] reported a left ventricular systolic ejection fraction of 16%. Her medical records from [place] show that she has been offered an ICD implant in the past but declined. Recommendations: Medical therapy for chronic systolic heart failure as her blood pressure will allow. Otherwise, conservative cardiac management. Subjective Date of service: 04/09/19 Interval history: Patient is resting in bed comfortably. She has no complaints. Sitter is at the bedside. Objective Vital Signs Temp Pulse Resp BP Pulse Ox 04/09/19 07:57 98.8 F 97 H 18 117/69 97 04/08/19 21:36 110 H 108/59 99 04/08/19 20:08 100 04/08/19 20:07 100 04/08/19 15:42 98.2 F 117 H 20 94/59 98 04/08/19 11:47 98 - Physical Examination General: No Apparent Distress HEENT: Positive: PERRL Neck: Positive: trachea midline Cardiac: Positive: Reg Rate and Rhythm Lungs: Positive: Decreased Breath Sounds Neuro: Positive: Grossly Intact Extremities: Absent: edema - Labs and Meds CBC 04/09/19 Range/Units 06:02 WBC 5.5 (4.5-11.0) K/mm3 RBC 3.12 L (3.65-5.03) M/mm3 Hgb 8.6 L (10.1-14.3) gm/dl Hct 25.0 L (30.3-42.9) % Plt Count 127 L (140-440) K/mm3 Comprehensive Metabolic Panel 04/09/19 Range/Units 06:02 Sodium 136 L (137-145) mmol/L Potassium 3.7 (3.6-5.0) mmol/L Chloride 102.3 (98-107) mmol/L Carbon Dioxide 23 (22-30) mmol/L BUN 14 (7-17) mg/dL Creatinine 0.6 L (0.7-1.2) mg/dL Glucose 108 H (65-100) mg/dL Calcium 8.3 L (8.4-10.2) mg/dL
--- NOTE | 2019-04-09 13:00 | Progress Note ---
Subjective - Reason for Consult Consult date: 04/09/19 Reason for consult: Psychiatric Follow-up Evaluation - Chief Complaint Chief complaint: "Right now I'm doing okay" Patient is a 59 year old AAF seen for psychiatric evaluation on the telemetry floor. She has a history of Dilated Non ischemic Cardiomyopathy, CHF, EF 16%, Schizophrenia who was transferred from [facility] because of low blood pressure, 88/50. CK is trending down. CK is 2685. Today the patient is calm and cooperative during the assessment. She reports intermittent sleep and good appetite. Although she denies psychosis, patient appears distracted and internally preoccupied. She denies SI/HI's, A/VH's, and delusions. Patient is medication compliant. No side effects noted/reported. Mental Status Exam - Vital signs Last Vital Signs Temp 98.8 F 04/09/19 07:57 Pulse 96 H 04/09/19 10:00 Resp 18 04/09/19 10:00 BP 117/69 04/09/19 07:57 Pulse Ox 97 04/09/19 10:00 - Exam Narrative exam: Orientation: time, place, person Affect: normal Mood: calm Thought content: impoverished Thought Process: Loose Associations (mild, mostly linear) Perceptions: patient denies A/V/T hallucinations Speech: slurring Concentration: distractible Motor activity: normal Level of consciousness: alert Memory: Intact (she recalls the weekend but did not know she was at a psychiatric hospital until yesterday) Sleep Symptoms: None Interaction: cooperative Assessment and Plan Impression: Schizoaffective disorder, unspecified by history. Today the patient is calm and cooperative during the assessment. She denies SI/HI's, A/VH's, and delusions. Presents with less disorganized thought process. Rhabdomyolysis addressed by medical team. CK trending down 2685 Recommendations: 1. Continue 1013. 2. Continue Risperdal 1mg po BID. The benefits outweigh the risk. Disposition: Psych will see patient daily for medication management and to determine if she continues to meet criteria for 1013. The current plan is for her to go to an inpatient psychiatric facility. Will staff with Dr. Figueroa
--- NOTE | 2019-04-09 16:02 | Progress Note ---
Assessment and Plan Assessment and plan: Patient is a 59 yo woman with a history of Dilated Non ischemic Cardiomyopathy, CHF, EF 16%, Schizophrenia who was transferred from [place] psychiatry facility because of low blood pressure, 88/50. Cardiac enzymes shows an elevated CK of 8474 but a normal relative index of 0.2 consistent with rhabdomyolysis. Relative Hypotension, resolved: hold antihypertensives Rhabdomyolysis: continue to treat with ivf, daily CPK levels, Patient denies any chest pain: continue to monitor Schizoaffective disorder: psych team is following, on 1012 with a sitter h/o A. fib: tele monitor advised but pt refuses to keep monitor on. h/o CHF, stable: closely monitor on IVFs d/c back to inpatient psych once rhabdo resolves, CPK <1000 History Interval history: Patient was seen and examined. Follow-up on current diagnosis Rhabdo. No new issues reported to me. Patient denies any chest pain, shortness breath, nausea/vomiting or severe headaches. Imaging, nursing note, chart, labs and old chart reviewed. Discussed with patient. Hospitalist Physical - Physical exam Narrative exam: Gen: WDWN, NAD, Awake, Alert, Orientated HEENT: NCAT, EOMI, PERRL, OP Clear Neck: supple, no adenopathy, no thyromegaly, no JVD CVS/Heart: RRR, normal S1S2, pulses present bilaterally Chest/Lungs: CTA B, Symmetrical chest expansion, good air entry bilaterally GI/Abdomen: soft, NTND, good bowel sounds, no guarding or rebound /Bladder: no suprapubic tenderness, no CVA or paraspinal tenderness Extermity/Skin: no c/c/e, no obvious rash MSK: FROM x 4 Neuro: CN 2-12 grossly intact, no new focal deficits Psych: agitated, hearing voices, difficult to re-direct - Constitutional Vitals: Temp Pulse Resp BP Pulse Ox 98.7 F 96 H 18 128/64 97 04/09/19 13:43 04/09/19 10:00 04/09/19 13:43 04/09/19 13:43 04/09/19 10:00 General appearance: Present: no acute distress Results - Labs CBC & Chem 7: 04/09/19 06:02 04/09/19 06:02 Labs: Laboratory Last Values WBC 5.5 K/mm3 (4.5-11.0) 04/09/19 06:02 RBC 3.12 M/mm3 (3.65-5.03) L 04/09/19 06:02 Hgb 8.6 gm/dl (10.1-14.3) L 04/09/19 06:02 Hct 25.0 % (30.3-42.9) L 04/09/19 06:02 MCV 80 fl (79-97) 04/09/19 06:02 MCH 28 pg (28-32) 04/09/19 06:02 MCHC 34 % (30-34) 04/09/19 06:02 RDW 19.1 % (13.2-15.2) H 04/09/19 06:02 Plt Count 127 K/mm3 (140-440) L 04/09/19 06:02 Lymph % (Auto) 20.6 % (13.4-35.0) 04/07/19 04:35 [place] % (Auto) 9.5 % (0.0-7.3) H 04/07/19 04:35 Eos % (Auto) 0.8 % (0.0-4.3) 04/07/19 04:35 Baso % (Auto) 0.2 % (0.0-1.8) 04/07/19 04:35 Lymph # 1.2 K/mm3 (1.2-5.4) 04/07/19 04:35 [place] # 0.6 K/mm3 (0.0-0.8) 04/07/19 04:35 Eos # 0.0 K/mm3 (0.0-0.4) 04/07/19 04:35 Baso # 0.0 K/mm3 (0.0-0.1) 04/07/19 04:35 Seg Neutrophils % 68.9 % (40.0-70.0) 04/07/19 04:35 Seg Neutrophils # 4.1 K/mm3 (1.8-7.7) 04/07/19 04:35 PT 16.4 Sec. (12.2-14.9) H 04/06/19 17:05 INR 1.36 (0.87-1.13) H 04/06/19 17:05 APTT 30.9 Sec. (24.2-36.6) 04/06/19 17:05 Sodium 136 mmol/L (137-145) L 04/09/19 06:02 Potassium 3.7 mmol/L (3.6-5.0) 04/09/19 06:02 Chloride 102.3 mmol/L (98-107) 04/09/19 06:02 Carbon Dioxide 23 mmol/L (22-30) 04/09/19 06:02 14 mmol/L 04/09/19 06:02 BUN 14 mg/dL (7-17) 04/09/19 06:02 0.6 mg/dL (0.7-1.2) L 04/09/19 06:02 Estimated GFR > 60 ml/min 04/09/19 06:02 23 % 04/09/19 06:02 Glucose 108 mg/dL (65-100) H 04/09/19 06:02 Calcium 8.3 mg/dL (8.4-10.2) L 04/09/19 06:02 2685 units/L (30-135) H 04/09/19 06:02 CK-MB (CK-2) 8.6 ng/mL (0.0-4.0) H 04/07/19 04:35 CK-MB (CK-2) Rel Index 0.1 (0-4) 04/07/19 04:35 < 0.010 ng/mL (0.00-0.029) 04/07/19 04:35 NT-Pro-B Natriuret Pep 939.9 pg/mL (0-900) H 04/06/19 17:05 Yellow (Yellow) 04/07/19 18:45 Slightly-cloudy (Clear) 04/07/19 18:45 5.0 (5.0-7.0) 04/07/19 18:45 Ur Specific [place] 1.021 (1.003-1.030) 04/07/19 18:45 <15 mg/dl mg/dL (Negative) 04/07/19 18:45 Neg mg/dL (Negative) 04/07/19 18:45 Neg mg/dL (Negative) 04/07/19 18:45 Neg (Negative) 04/07/19 18:45 Neg (Negative) 04/07/19 18:45 Neg (Negative) 04/07/19 18:45 2.0 mg/dL (<2.0) 04/07/19 18:45 Ur Leukocyte Esterase Lg (Negative) 04/07/19 18:45 150.0 /HPF (0.0-6.0) H 04/07/19 18:45 4.0 /HPF (0.0-6.0) 04/07/19 18:45 U Epithel Cells (Auto) 8.0 /HPF (0-13.0) 04/07/19 18:45 1+ /HPF (Negative) 04/07/19 18:45 Few /HPF 04/07/19 18:45 Active Medications - Current Medications Current Medications: Generic Name Dose Route Start Last Admin Trade Name Freq PRN Reason Stop Dose Admin Acetaminophen 650 mg 04/06/19 22:14 Tylenol PO Q4H PRN Pain MILD(1-3)/Fever >100.5/MICHAEL Aspirin 81 mg 04/07/19 10:00 04/09/19 09:23 Baby Aspirin PO 81 mg DAILY [facility] Administration Sodium Chloride 1,000 mls @ 50 mls/hr 04/06/19 23:00 04/08/19 14:13 Nacl 0.45% 1000 Ml IV 50 mls/hr DIRECT [facility]AME Administration Ceftriaxone Sodium 1 gm in 50 mls @ 100 mls/hr 04/07/19 10:00 04/09/19 09:25 Rocephin/Ns 1 Gm/50 Ml IV 100 mls/hr Q24HR [facility] Administration Ondansetron HCl 4 mg 04/06/19 22:14 Zofran IV Q8H PRN Nausea And Vomiting Risperidone 1 mg 04/07/19 10:00 04/09/19 09:23 Risperdal PO 1 mg BID [facility] Administration Sodium Chloride 10 ml 04/07/19 10:00 04/09/19 09:23 Sodium Chloride Flush Syringe 10 Ml IV 10 ml BID [facility] Administration Sodium Chloride 10 ml 04/06/19 22:14 Sodium Chloride Flush Syringe 10 Ml IV PRN PRN LINE FLUSH Temazepam 15 mg 04/08/19 00:26 Restoril PO QHS PRN Sleep Nutrition/Malnutrition Assess - Dietary Evaluation Nutrition/Malnutrition Findings: Nutrition Notes Start: 04/07/19 15:24 Freq: Status: Active Protocol: Document 04/07/19 15:24 RM (Rec: 04/07/19 15:29 RM [id number]) Nutrition Notes Need for Assessment generated from: MD Order Initial or Follow up Brief Note Other Pertinent Diagnosis Schizoaffetive disorder Current Diet Cardiac w/Ensure Enlive Vanilla Labs/Tests Reviewed Pertinent Medications Reviewed Height 5 ft 6 in Weight 61.235 kg Usual Body Weight 95.91 kg [place] Body Weight (kg) 59.09 BMI 21.7 Weight change and time frame 36% wt loss since sometime in 2017 Subjective/Other Information Consulted for poor oral intake and ONS diet. 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 Stated that she eats most of her meals. Stated UBW was 211 lbs sometime in 2017. Burn Absent Trauma Absent Nutrition Intervention Add Supplement/Snack (indicate name/kcal D/C Ensure Enlive /protein ) Revisit per MD consult or patient Sign Off request:
--- NOTE | 2019-04-10 09:02 | Progress Note ---
Assessment and Plan Hypotension -resolved Schizophrenia Rhabdomyolysis Hx of dilated nonischemic cardiomyopathy LHC at [facility] 04/2018 reports angiographically normal coronary arteries. Echocardiogram done 12/2018 at [place] reported a left ventricular systolic ejection fraction of 16%. Her medical records from [place] show that she has been offered an ICD implant in the past but declined. Recommendations: Medical therapy for chronic systolic heart failure as her blood pressure will allow. Otherwise, conservative cardiac management. Subjective Date of service: 04/10/19 Interval history: Patient has no complaints. Sitter is at the bedside. Objective Vital Signs Temp Pulse Pulse Resp BP BP Pulse Ox 04/10/19 06:36 98.4 F 72 18 128/72 100 04/10/19 06:35 98.6 F 101 H 128/67 98 04/09/19 23:25 99.4 F 115 H 136/57 95 04/09/19 20:50 98 04/09/19 20:36 99.1 F 101 H 16 133/63 98 04/09/19 16:48 98.3 F 100 H 18 132/48 100 04/09/19 13:43 98.7 F 18 128/64 04/09/19 10:00 96 H 18 97 - Physical Examination General: No Apparent Distress HEENT: Positive: PERRL Neck: Positive: trachea midline Cardiac: Positive: Reg Rate and Rhythm Lungs: Positive: Decreased Breath Sounds Neuro: Positive: Grossly Intact Extremities: Absent: edema
[2019-04-10] MEDS: BABY ASPIRIN PO SCH (09:17)
[2019-04-10] MEDS: RisperDAL PO SCH ×2 (09:18→22:40)
[2019-04-10] MEDS: ROCEPHIN/NS 1 GM/50 ML 1 GM/50 ML BAG IV SCH (09:18)
[2019-04-10] MEDS: SODIUM CHLORIDE FLUSH SYRINGE 10 ML IV SCH ×2 (09:19→22:43)
--- NOTE | 2019-04-10 14:55 | Progress Note ---
Assessment and Plan Assessment and plan: Patient is a 59 yo woman with a history of Dilated Non ischemic Cardiomyopathy, CHF, EF 16%, Schizophrenia who was transferred from [facility] facility because of low blood pressure, 88/50. Cardiac enzymes shows an elevated CK of 8474 but a normal relative index of 0.2 consistent with rhabdomyolysis. Relative Hypotension, resolved: hold antihypertensives Rhabdomyolysis: continue to treat with ivf, daily CPK levels, ARF, atn, poa: treat with IVFs Patient denies any chest pain: continue to monitor Schizoaffective disorder: psych team is following, on 1012 with a sitter h/o A. fib: tele monitor advised but pt refuses to keep monitor on. h/o CHF, stable: closely monitor on IVFs d/c back to inpatient psych once rhabdo resolves, CPK <1000 History Interval history: Patient was seen and examined. Follow-up on current diagnosis Rhabdo. No new issues reported to me. Patient denies any chest pain, shortness breath, nausea/vomiting or severe headaches. Imaging, nursing note, chart, labs and old chart reviewed. Discussed with patient. Hospitalist Physical - Physical exam Narrative exam: Gen: WDWN, NAD, Awake, Alert, Orientated HEENT: NCAT, EOMI, PERRL, OP Clear Neck: supple, no adenopathy, no thyromegaly, no JVD CVS/Heart: RRR, normal S1S2, pulses present bilaterally Chest/Lungs: CTA B, Symmetrical chest expansion, good air entry bilaterally GI/Abdomen: soft, NTND, good bowel sounds, no guarding or rebound /Bladder: no suprapubic tenderness, no CVA or paraspinal tenderness Extermity/Skin: no c/c/e, no obvious rash MSK: FROM x 4 Neuro: CN 2-12 grossly intact, no new focal deficits Psych: agitated, hearing voices, difficult to re-direct - Constitutional Vitals: Temp Pulse Resp BP Pulse Ox 98.4 F 115 H 16 83/55 99 04/10/19 06:36 04/10/19 14:34 04/10/19 13:57 04/10/19 14:34 04/10/19 13:57 General appearance: Present: no acute distress Results - Labs CBC & Chem 7: 04/09/19 06:02 04/09/19 06:02 Labs: Laboratory Last Values WBC 5.5 K/mm3 (4.5-11.0) 04/09/19 06:02 RBC 3.12 M/mm3 (3.65-5.03) L 04/09/19 06:02 Hgb 8.6 gm/dl (10.1-14.3) L 04/09/19 06:02 Hct 25.0 % (30.3-42.9) L 04/09/19 06:02 MCV 80 fl (79-97) 04/09/19 06:02 MCH 28 pg (28-32) 04/09/19 06:02 MCHC 34 % (30-34) 04/09/19 06:02 RDW 19.1 % (13.2-15.2) H 04/09/19 06:02 Plt Count 127 K/mm3 (140-440) L 04/09/19 06:02 Lymph % (Auto) 20.6 % (13.4-35.0) 04/07/19 04:35 [place] % (Auto) 9.5 % (0.0-7.3) H 04/07/19 04:35 Eos % (Auto) 0.8 % (0.0-4.3) 04/07/19 04:35 Baso % (Auto) 0.2 % (0.0-1.8) 04/07/19 04:35 Lymph # 1.2 K/mm3 (1.2-5.4) 04/07/19 04:35 [place] # 0.6 K/mm3 (0.0-0.8) 04/07/19 04:35 Eos # 0.0 K/mm3 (0.0-0.4) 04/07/19 04:35 Baso # 0.0 K/mm3 (0.0-0.1) 04/07/19 04:35 Seg Neutrophils % 68.9 % (40.0-70.0) 04/07/19 04:35 Seg Neutrophils # 4.1 K/mm3 (1.8-7.7) 04/07/19 04:35 PT 16.4 Sec. (12.2-14.9) H 04/06/19 17:05 INR 1.36 (0.87-1.13) H 04/06/19 17:05 APTT 30.9 Sec. (24.2-36.6) 04/06/19 17:05 Sodium 136 mmol/L (137-145) L 04/09/19 06:02 Potassium 3.7 mmol/L (3.6-5.0) 04/09/19 06:02 Chloride 102.3 mmol/L (98-107) 04/09/19 06:02 Carbon Dioxide 23 mmol/L (22-30) 04/09/19 06:02 14 mmol/L 04/09/19 06:02 BUN 14 mg/dL (7-17) 04/09/19 06:02 0.6 mg/dL (0.7-1.2) L 04/09/19 06:02 Estimated GFR > 60 ml/min 04/09/19 06:02 23 % 04/09/19 06:02 Glucose 108 mg/dL (65-100) H 04/09/19 06:02 Calcium 8.3 mg/dL (8.4-10.2) L 04/09/19 06:02 1428 units/L (30-135) H 04/10/19 04:40 CK-MB (CK-2) 8.6 ng/mL (0.0-4.0) H 04/07/19 04:35 CK-MB (CK-2) Rel Index 0.1 (0-4) 04/07/19 04:35 < 0.010 ng/mL (0.00-0.029) 04/07/19 04:35 NT-Pro-B Natriuret Pep 939.9 pg/mL (0-900) H 04/06/19 17:05 Yellow (Yellow) 04/07/19 18:45 Slightly-cloudy (Clear) 04/07/19 18:45 5.0 (5.0-7.0) 04/07/19 18:45 Ur Specific [place] 1.021 (1.003-1.030) 04/07/19 18:45 <15 mg/dl mg/dL (Negative) 04/07/19 18:45 Neg mg/dL (Negative) 04/07/19 18:45 Neg mg/dL (Negative) 04/07/19 18:45 Neg (Negative) 04/07/19 18:45 Neg (Negative) 04/07/19 18:45 Neg (Negative) 04/07/19 18:45 2.0 mg/dL (<2.0) 04/07/19 18:45 Ur Leukocyte Esterase Lg (Negative) 04/07/19 18:45 150.0 /HPF (0.0-6.0) H 04/07/19 18:45 4.0 /HPF (0.0-6.0) 04/07/19 18:45 U Epithel Cells (Auto) 8.0 /HPF (0-13.0) 04/07/19 18:45 1+ /HPF (Negative) 04/07/19 18:45 Few /HPF 04/07/19 18:45 Active Medications - Current Medications Current Medications: Generic Name Dose Route Start Last Admin Trade Name Freq PRN Reason Stop Dose Admin Acetaminophen 650 mg 04/06/19 22:14 Tylenol PO Q4H PRN Pain MILD(1-3)/Fever >100.5/MICHAEL Aspirin 81 mg 04/07/19 10:00 04/10/19 09:17 Baby Aspirin PO 81 mg DAILY KWAME Administration Sodium Chloride 1,000 mls @ 50 mls/hr 04/06/19 23:00 04/10/19 00:00 Nacl 0.45% 1000 Ml IV 50 mls/hr DIRECT KWAME Administration Ceftriaxone Sodium 1 gm in 50 mls @ 100 mls/hr 04/07/19 10:00 04/10/19 09:18 Rocephin/Ns 1 Gm/50 Ml IV 100 mls/hr Q24HR KWAME Administration Lisinopril 2.5 mg 04/11/19 10:00 Zestril PO QDAY KWAME Metoprolol Succinate 25 mg 04/11/19 10:00 Toprol Xl PO QDAY KWAME Ondansetron HCl 4 mg 04/06/19 22:14 Zofran IV Q8H PRN Nausea And Vomiting Risperidone 1 mg 04/07/19 10:00 04/10/19 09:18 Risperdal PO 1 mg BID KWAME Administration Sodium Chloride 10 ml 04/07/19 10:00 04/10/19 09:19 Sodium Chloride Flush Syringe 10 Ml IV 10 ml BID KWAME Administration Sodium Chloride 10 ml 04/06/19 22:14 Sodium Chloride Flush Syringe 10 Ml IV PRN PRN LINE FLUSH Temazepam 15 mg 04/08/19 00:26 Restoril PO QHS PRN Sleep Nutrition/Malnutrition Assess - Dietary Evaluation Nutrition/Malnutrition Findings: Nutrition Notes Start: 04/07/19 15:24 Freq: Status: Active Protocol: Document 04/07/19 15:24 RM (Rec: 04/07/19 15:29 RM [id number]) Nutrition Notes Need for Assessment generated from: MD Order Initial or Follow up Brief Note Other Pertinent Diagnosis Schizoaffetive disorder Current Diet Cardiac w/Ensure Enlive Vanilla Labs/Tests Reviewed Pertinent Medications Reviewed Height 5 ft 6 in Weight 61.235 kg Usual Body Weight 95.91 kg [place] Body Weight (kg) 59.09 BMI 21.7 Weight change and time frame 36% wt loss since sometime in 2017 Subjective/Other Information Consulted for poor oral intake and ONS diet. 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 Stated that she eats most of her meals. Stated UBW was 211 lbs sometime in 2017. Burn Absent Trauma Absent Nutrition Intervention Add Supplement/Snack (indicate name/kcal D/C Ensure Enlive /protein ) Revisit per MD consult or patient Sign Off request:
--- NOTE | 2019-04-10 17:14 | Progress Note ---
Subjective - Reason for Consult Consult date: 04/10/19 Reason for consult: Psychiatric Follow-up Evaluation - Chief Complaint Chief complaint: "I'm okay" Patient is a 59 year old AAF seen for psychiatric evaluation on the telemetry floor. She has a history of Dilated Non ischemic Cardiomyopathy, CHF, EF 16%, Patient has a PPHx schizoaffective disorder who was transferred from [facility] facility because of low blood pressure, 88/50. CK is trending down. CK is 1428. Today the patient is calm and cooperative during the assessment. She reports intermittent sleep and good appetite. Patient endorses being internally preoccupied . She states, " I talk to myself." She denies SI/HI's, A/VH's, and delusions. Patient is medication compliant. No side effects noted/reported. Mental Status Exam - Vital signs Last Vital Signs Temp 98.4 F 04/10/19 06:36 Pulse 115 H 04/10/19 14:34 Resp 16 04/10/19 13:57 BP 83/55 04/10/19 14:34 Pulse Ox 99 04/10/19 13:57 - Exam Narrative exam: Narrative exam: Orientation: time, place, person Affect: normal Mood: calm Thought content: impoverished Thought Process: More organized; less loose Associations (mild, mostly linear) Perceptions: patient denies A/V/T hallucinations; less internally preoccupied. Speech: slurring Concentration: less distracted Motor activity: normal Level of consciousness: alert Memory: Intact (she recalls the weekend but did not know she was at a psychiatric hospital until yesterday) Sleep Symptoms: None Interaction: cooperative Assessment and Plan Impression: Schizoaffective disorder, unspecified by history. Today the patient is calm and cooperative during the assessment. She denies SI/HI's, A/VH's, and delusions. Presents with more organized thought process. Improving psychosis noted. Les internally preoccupied/ paranoid delusions. Rhabdomyolysis addressed by medical team. CK trending down 1428 Recommendations: 1. Continue 1013. Will reassess in 24 hours. 2. Continue Risperdal 1mg po BID. The benefits outweigh the risk. 3. Start Trazodone 50mg po QHS PRN insomnia. Discussed side effects. Patient verbalizes full understanding. Disposition: Psych will see patient daily for medication management and to determine if she continues to meet criteria for 1013. The current plan is for her to go to an inpatient psychiatric facility. Will staff with Dr. Figueroa
[2019-04-10] MEDS: NACL 0.45% 1000 ML 1,000 ML IV SCH ×2 (19:09)
[2019-04-11] MEDS: BABY ASPIRIN PO SCH (10:44)
[2019-04-11] MEDS: ZESTRIL PO SCH (10:44)
[2019-04-11] MEDS: TOPROL XL PO SCH (10:54)
[2019-04-11] MEDS: RisperDAL PO SCH ×2 (10:55→21:38)
--- NOTE | 2019-04-11 11:10 | Progress Note ---
Assessment and Plan Hypotension -resolved Schizophrenia Rhabdomyolysis Hx of dilated nonischemic cardiomyopathy LHC at [facility] 04/2018 reports angiographically normal coronary arteries. Echocardiogram done 12/2018 at [place] reported a left ventricular systolic ejection fraction of 16%. Her medical records from [place] show that she has been offered an ICD implant in the past but declined. Recommendations: Medical therapy for chronic systolic heart failure as her blood pressure will allow. Otherwise, conservative cardiac management. Subjective Date of service: 04/11/19 Principal diagnosis: HYpotension Interval history: Patient is doing well She denies chest pain or SOB Patient is not on tele because she is refusing Objective Vital Signs Temp Pulse Resp BP BP Pulse Ox 04/11/19 10:55 97.9 F 107 H 18 128/74 98 04/11/19 10:54 110 H 128/74 04/11/19 10:44 110 H 127/78 04/11/19 04:00 97.8 F 85 16 100/85 100 04/10/19 22:00 115 H 96 04/10/19 14:34 115 H 83/55 04/10/19 13:57 71 16 80/42 99 - Physical Examination General: No Apparent Distress HEENT: Positive: PERRL Neck: Positive: trachea midline Cardiac: Positive: Reg Rate and Rhythm Lungs: Positive: Normal Exam Neuro: Positive: Grossly Intact Extremities: Absent: edema - Imaging and Cardiology EKG: image reviewed
[2019-04-11] MEDS: ROCEPHIN/NS 1 GM/50 ML 1 GM/50 ML BAG IV SCH (11:47)
[2019-04-11] MEDS: SODIUM CHLORIDE FLUSH SYRINGE 10 ML IV SCH (11:48)
--- NOTE | 2019-04-11 15:52 | Progress Note ---
Assessment and Plan Assessment and plan: Patient is a 59 yo woman with a history of Dilated Non ischemic Cardiomyopathy, CHF, EF 16%, Schizophrenia who was transferred from [place] [facility] facility because of low blood pressure, 88/50. Cardiac enzymes shows an elevated CK of 8474 but a normal relative index of 0.2 consistent with rhabdomyolysis. Relative Hypotension, resolved: hold antihypertensives Rhabdomyolysis: continue to treat with ivf, daily CPK levels, ARF, atn, poa: treat with IVFs Patient denies any chest pain: continue to monitor Schizoaffective disorder: psych team is following, on 1012 with a sitter h/o A. fib: tele monitor advised but pt refuses to keep monitor on. h/o CHF, stable: closely monitor on IVFs d/c back to inpatient psych once rhabdo resolves, CPK <1000 medical stable to go to inpatient psych unit History Interval history: Patient was seen and examined. Follow-up on current diagnosis Rhabdo. No new issues reported to me. Patient denies any chest pain, shortness breath, nausea/vomiting or severe headaches. Imaging, nursing note, chart, labs and old chart reviewed. Discussed with patient. Hospitalist Physical - Physical exam Narrative exam: Gen: WDWN, NAD, Awake, Alert, Orientated HEENT: NCAT, EOMI, PERRL, OP Clear Neck: supple, no adenopathy, no thyromegaly, no JVD CVS/Heart: RRR, normal S1S2, pulses present bilaterally Chest/Lungs: CTA B, Symmetrical chest expansion, good air entry bilaterally GI/Abdomen: soft, NTND, good bowel sounds, no guarding or rebound /Bladder: no suprapubic tenderness, no CVA or paraspinal tenderness Extermity/Skin: no c/c/e, no obvious rash MSK: FROM x 4 Neuro: CN 2-12 grossly intact, no new focal deficits Psych: agitated, hearing voices, difficult to re-direct - Constitutional Vitals: Temp Pulse Resp BP Pulse Ox 97.9 F 107 H 18 128/74 98 04/11/19 10:55 04/11/19 10:55 04/11/19 10:55 04/11/19 10:55 04/11/19 10:55 General appearance: Present: no acute distress Results - Labs CBC & Chem 7: 04/09/19 06:02 04/09/19 06:02 Labs: Laboratory Last Values WBC 5.5 K/mm3 (4.5-11.0) 04/09/19 06:02 RBC 3.12 M/mm3 (3.65-5.03) L 04/09/19 06:02 Hgb 8.6 gm/dl (10.1-14.3) L 04/09/19 06:02 Hct 25.0 % (30.3-42.9) L 04/09/19 06:02 MCV 80 fl (79-97) 04/09/19 06:02 MCH 28 pg (28-32) 04/09/19 06:02 MCHC 34 % (30-34) 04/09/19 06:02 RDW 19.1 % (13.2-15.2) H 04/09/19 06:02 Plt Count 127 K/mm3 (140-440) L 04/09/19 06:02 Lymph % (Auto) 20.6 % (13.4-35.0) 04/07/19 04:35 [place] % (Auto) 9.5 % (0.0-7.3) H 04/07/19 04:35 Eos % (Auto) 0.8 % (0.0-4.3) 04/07/19 04:35 Baso % (Auto) 0.2 % (0.0-1.8) 04/07/19 04:35 Lymph # 1.2 K/mm3 (1.2-5.4) 04/07/19 04:35 [place] # 0.6 K/mm3 (0.0-0.8) 04/07/19 04:35 Eos # 0.0 K/mm3 (0.0-0.4) 04/07/19 04:35 Baso # 0.0 K/mm3 (0.0-0.1) 04/07/19 04:35 Seg Neutrophils % 68.9 % (40.0-70.0) 04/07/19 04:35 Seg Neutrophils # 4.1 K/mm3 (1.8-7.7) 04/07/19 04:35 PT 16.4 Sec. (12.2-14.9) H 04/06/19 17:05 INR 1.36 (0.87-1.13) H 04/06/19 17:05 APTT 30.9 Sec. (24.2-36.6) 04/06/19 17:05 Sodium 136 mmol/L (137-145) L 04/09/19 06:02 Potassium 3.7 mmol/L (3.6-5.0) 04/09/19 06:02 Chloride 102.3 mmol/L (98-107) 04/09/19 06:02 Carbon Dioxide 23 mmol/L (22-30) 04/09/19 06:02 14 mmol/L 04/09/19 06:02 BUN 14 mg/dL (7-17) 04/09/19 06:02 0.6 mg/dL (0.7-1.2) L 04/09/19 06:02 Estimated GFR > 60 ml/min 04/09/19 06:02 23 % 04/09/19 06:02 Glucose 108 mg/dL (65-100) H 04/09/19 06:02 Calcium 8.3 mg/dL (8.4-10.2) L 04/09/19 06:02 947 units/L (30-135) H 04/11/19 06:15 CK-MB (CK-2) 8.6 ng/mL (0.0-4.0) H 04/07/19 04:35 CK-MB (CK-2) Rel Index 0.1 (0-4) 04/07/19 04:35 < 0.010 ng/mL (0.00-0.029) 04/07/19 04:35 NT-Pro-B Natriuret Pep 939.9 pg/mL (0-900) H 04/06/19 17:05 Yellow (Yellow) 04/07/19 18:45 Slightly-cloudy (Clear) 04/07/19 18:45 5.0 (5.0-7.0) 04/07/19 18:45 Ur Specific [place] 1.021 (1.003-1.030) 04/07/19 18:45 <15 mg/dl mg/dL (Negative) 04/07/19 18:45 Neg mg/dL (Negative) 04/07/19 18:45 Neg mg/dL (Negative) 04/07/19 18:45 Neg (Negative) 04/07/19 18:45 Neg (Negative) 04/07/19 18:45 Neg (Negative) 04/07/19 18:45 2.0 mg/dL (<2.0) 04/07/19 18:45 Ur Leukocyte Esterase Lg (Negative) 04/07/19 18:45 150.0 /HPF (0.0-6.0) H 04/07/19 18:45 4.0 /HPF (0.0-6.0) 04/07/19 18:45 U Epithel Cells (Auto) 8.0 /HPF (0-13.0) 04/07/19 18:45 1+ /HPF (Negative) 04/07/19 18:45 Few /HPF 04/07/19 18:45 Active Medications - Current Medications Current Medications: Generic Name Dose Route Start Last Admin Trade Name Freq PRN Reason Stop Dose Admin Acetaminophen 650 mg 04/06/19 22:14 Tylenol PO Q4H PRN Pain MILD(1-3)/Fever >100.5/MICHAEL Aspirin 81 mg 04/07/19 10:00 04/11/19 10:44 Baby Aspirin PO 81 mg DAILY KWAME Administration Furosemide 20 mg 04/12/19 10:00 Lasix PO QDAY KWAME Sodium Chloride 1,000 mls @ 50 mls/hr 04/06/19 23:00 04/10/19 19:09 Nacl 0.45% 1000 Ml IV 50 mls/hr DIRECT KWAME Administration Ceftriaxone Sodium 1 gm in 50 mls @ 100 mls/hr 04/07/19 10:00 04/11/19 11:47 Rocephin/Ns 1 Gm/50 Ml IV 100 mls/hr Q24HR KWAME Administration Lisinopril 2.5 mg 04/11/19 10:00 04/11/19 10:44 Zestril PO Not Given QDAY KWAME Metoprolol Succinate 25 mg 04/11/19 10:00 04/11/19 10:54 Toprol Xl PO Not Given QDAY KWAME Ondansetron HCl 4 mg 04/06/19 22:14 Zofran IV Q8H PRN Nausea And Vomiting Potassium Chloride 8 meq 04/12/19 10:00 Klor-Con 8 PO QDAY KWAME Risperidone 1 mg 04/07/19 10:00 04/11/19 10:55 Risperdal PO 1 mg BID KWAME Administration Sodium Chloride 10 ml 06/18/19 10:00 04/11/19 11:48 Sodium Chloride Flush Syringe 10 Ml IV 10 ml BID KWAME Administration Sodium Chloride 10 ml 04/06/19 22:14 Sodium Chloride Flush Syringe 10 Ml IV PRN PRN LINE FLUSH Temazepam 15 mg 04/08/19 00:26 Restoril PO QHS PRN Sleep Nutrition/Malnutrition Assess - Dietary Evaluation Nutrition/Malnutrition Findings: Nutrition Notes Start: 04/07/19 15:24 Freq: Status: Active Protocol: Document 04/07/19 15:24 RM (Rec: 04/07/19 15:29 RM [id number]) Nutrition Notes Need for Assessment generated from: MD Order Initial or Follow up Brief Note Other Pertinent Diagnosis Schizoaffetive disorder Current Diet Cardiac w/Ensure Enlive Vanilla Labs/Tests Reviewed Pertinent Medications Reviewed Height 5 ft 6 in Weight 61.235 kg Usual Body Weight 95.91 kg [place] Body Weight (kg) 59.09 BMI 21.7 Weight change and time frame 36% wt loss since sometime in 2017 Subjective/Other Information Consulted for poor oral intake and ONS diet. 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 Stated that she eats most of her meals. Stated UBW was 211 lbs sometime in 2017. Burn Absent Trauma Absent Nutrition Intervention Add Supplement/Snack (indicate name/kcal D/C Ensure Enlive /protein ) Revisit per MD consult or patient Sign Off request:
--- NOTE | 2019-04-11 15:53 | Progress Note ---
Subjective - Reason for Consult Consult date: 04/11/19 Reason for consult: follow up - Chief Complaint Chief complaint: "I'm okay" Patient is a 59 year old AAF seen for psychiatric evaluation on the telemetry floor. She has a history of Dilated Non ischemic Cardiomyopathy, CHF, EF 16%, Patient has a PPHx schizoaffective disorder who was transferred from [place] [facility] facility because of low blood pressure, 88/50. CK is trending down. CK is 947. Today the patient is calm and cooperative during the assessment. She reports intermittent sleep and good appetite. She has mild loose associations. She is concerned about her belongings. She wants to make sure they were not misplaced, specifically her bank card. Patient is medication compliant. No side effects noted/reported. Mental Status Exam - Vital signs Last Vital Signs Temp 97.9 F 04/11/19 10:55 Pulse 107 H 04/11/19 10:55 Resp 18 04/11/19 10:55 BP 128/74 04/11/19 10:55 Pulse Ox 98 04/11/19 10:55 - Exam Narrative exam: Orientation: time, place, person Affect: appropriate Mood: calm Thought content: no suicidal or homicidal ideation. Thought Process: More organized; less loose Associations (mild, mostly linear) Perceptions: denies AVH Speech: clear Motor activity: normal Level of consciousness: alert Memory: Intact Sleep Symptoms: trouble going to sleep Interaction: cooperative Assessment and Plan Impression: mild loose associations schizoaffective disorder, unspecified by history rhabdomyolysis addressed by medical team, ck trending down, now 947 No acute safety concerns identified. Recommendations: Her ck is trending down and she is not having adverse effects to risperdal. The benefit of continuing it at 1mg bid is greater than the risks. rescind 1013 as she no longer meets criteria. dispo: [facility] recommended staffed with Dr. Figueroa
--- NOTE | 2019-04-11 15:58 | Discharge Summary ---
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 Cardiac enzymes shows an elevated CK of 8474 but a normal relative index of 0.2 consistent with rhabdomyolysis. Relative Hypotension, resolved: hold antihypertensives Rhabdomyolysis: continue to treat with ivf, daily CPK levels, ARF, atn, poa: treat with IVFs Patient denies any chest pain: continue to monitor Schizoaffective disorder: psych team is following, on 101 with a sitter h/o A. fib: tele monitor advised but pt refuses to keep monitor on. 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 Mental health recommended voluntary [facility] intake admission. Disposition: - TO HOME OR SELFCARE Time spent for discharge: 32 min Core Measure Documentation - Palliative Care Palliative Care/ Comfort Measures: Not Applicable - Core Measures Any of the following diagnoses?: none - VTE Discharge Requirements Deep Vein Thrombosis/Pulmonary Embolism Present on Admission: No Has pt received <5 days of overlap therapy or INR<2.0: No Anticoagulant overlap therapy prescribed at discharge: No Contraindication No Overlap Therapy order at DC: Not Indicated Exam - Physical Exam Narrative exam: Gen: WDWN, NAD, Awake, Alert, Orientated HEENT: NCAT, EOMI, PERRL, OP Clear Neck: supple, no adenopathy, no thyromegaly, no JVD CVS/Heart: RRR, normal S1S2, pulses present bilaterally Chest/Lungs: CTA B, Symmetrical chest expansion, good air entry bilaterally GI/Abdomen: soft, NTND, good bowel sounds, no guarding or rebound /Bladder: no suprapubic tenderness, no CVA or paraspinal tenderness Extermity/Skin: no c/c/e, no obvious rash MSK: FROM x 4 Neuro: CN 2-12 grossly intact, no new focal deficits Psych: calm - Constitutional Vitals: Temp Pulse Resp BP Pulse Ox 97.9 F 107 H 18 128/74 98 04/11/19 10:55 04/11/19 10:55 04/11/19 10:55 04/11/19 10:55 04/11/19 10:55 Plan Activity: other (no strenous activity ) Diet: regular Additional Instructions: Go to [facility] for voluntary admission after leaving Hospital Follow up with: ARCHANA CHACONSACRAMENTO MD RA [Referring] - 3-5 Days SHAAN ARNOLD MD [Staff Physician] - 7 Days Prescriptions: traZODone 25 mg PO QHS PRN #30 PRN Reason: Sleep RisperDAL 1 mg PO BID #60
[2019-04-11] MEDS ORDERED: ATIVAN IM ONE (23:15)
[2019-04-12] MEDS: SODIUM CHLORIDE FLUSH SYRINGE 10 ML IV SCH ×3 (00:36→22:15)
[2019-04-12] MEDS: RisperDAL PO SCH ×2 (09:44→22:15)
[2019-04-12] MEDS: ZESTRIL PO SCH (09:44)
[2019-04-12] MEDS: LASIX PO SCH (09:44)
[2019-04-12] MEDS: BABY ASPIRIN PO SCH (09:44)
[2019-04-12] MEDS: TOPROL XL PO SCH (09:44)
[2019-04-12] MEDS ORDERED: KLOR-CON 8 PO SCH (10:00)
[2019-04-12] MEDS: ROCEPHIN/NS 1 GM/50 ML 1 GM/50 ML BAG IV SCH (10:10)
--- NOTE | 2019-04-12 11:26 | Progress Note ---
Assessment and Plan Assessment and plan: Patient is a 59 yo woman with a history of Dilated Non ischemic Cardiomyopathy, CHF, EF 16%, Schizophrenia who was transferred from [place] [facility] facility because of low blood pressure, 88/50. Cardiac enzymes shows an elevated CK of 8474 but a normal relative index of 0.2 consistent with rhabdomyolysis. Relative Hypotension, resolved: hold antihypertensives Rhabdomyolysis: continue to treat with ivf, daily CPK levels, ARF, atn, poa: treat with IVFs Patient denies any chest pain: continue to monitor Schizoaffective disorder: psych team is following, on 1012 with a sitter h/o A. fib: tele monitor advised but pt refuses to keep monitor on. h/o CHF, stable: closely monitor on IVFs d/c back to inpatient psych once rhabdo resolves, CPK <1000 medical stable to go to inpatient psych unit Mental Health EVENT COORDINATOR rescinded 1012 but patient still is very confused with disorganized thoughts, so re-consulted Psych, she needs inpatient psych placement History Interval history: Patient was seen and examined. Follow-up on current diagnosis Rhabdo. No new issues reported to me. Patient denies any chest pain, shortness breath, nausea/vomiting or severe headaches. Imaging, nursing note, chart, labs and old chart reviewed. Discussed with patient. Hospitalist Physical - Physical exam Narrative exam: Gen: WDWN, NAD, Awake, Alert, Orientated HEENT: NCAT, EOMI, PERRL, OP Clear Neck: supple, no adenopathy, no thyromegaly, no JVD CVS/Heart: RRR, normal S1S2, pulses present bilaterally Chest/Lungs: CTA B, Symmetrical chest expansion, good air entry bilaterally GI/Abdomen: soft, NTND, good bowel sounds, no guarding or rebound /Bladder: no suprapubic tenderness, no CVA or paraspinal tenderness Extermity/Skin: no c/c/e, no obvious rash MSK: FROM x 4 Neuro: CN 2-12 grossly intact, no new focal deficits Psych: agitated, hearing voices, difficult to re-direct - Constitutional Vitals: Temp Pulse Resp BP Pulse Ox 98.2 F 96 H 24 120/70 98 04/12/19 06:29 04/12/19 06:29 04/12/19 06:29 04/12/19 06:29 04/12/19 06:29 General appearance: Present: no acute distress Results - Labs CBC & Chem 7: 04/09/19 06:02 04/09/19 06:02 Labs: Laboratory Last Values WBC 5.5 K/mm3 (4.5-11.0) 04/09/19 06:02 RBC 3.12 M/mm3 (3.65-5.03) L 04/09/19 06:02 Hgb 8.6 gm/dl (10.1-14.3) L 04/09/19 06:02 Hct 25.0 % (30.3-42.9) L 04/09/19 06:02 MCV 80 fl (79-97) 04/09/19 06:02 MCH 28 pg (28-32) 04/09/19 06:02 MCHC 34 % (30-34) 04/09/19 06:02 RDW 19.1 % (13.2-15.2) H 04/09/19 06:02 Plt Count 127 K/mm3 (140-440) L 04/09/19 06:02 Lymph % (Auto) 20.6 % (13.4-35.0) 04/07/19 04:35 [place] % (Auto) 9.5 % (0.0-7.3) H 04/07/19 04:35 Eos % (Auto) 0.8 % (0.0-4.3) 04/07/19 04:35 Baso % (Auto) 0.2 % (0.0-1.8) 04/07/19 04:35 Lymph # 1.2 K/mm3 (1.2-5.4) 04/07/19 04:35 Gilliam # 0.6 K/mm3 (0.0-0.8) 04/07/19 04:35 Eos # 0.0 K/mm3 (0.0-0.4) 04/07/19 04:35 Baso # 0.0 K/mm3 (0.0-0.1) 04/07/19 04:35 Seg Neutrophils % 68.9 % (40.0-70.0) 04/07/19 04:35 Seg Neutrophils # 4.1 K/mm3 (1.8-7.7) 04/07/19 04:35 PT 16.4 Sec. (12.2-14.9) H 04/06/19 17:05 INR 1.36 (0.87-1.13) H 04/06/19 17:05 APTT 30.9 Sec. (24.2-36.6) 04/06/19 17:05 Sodium 136 mmol/L (137-145) L 04/09/19 06:02 Potassium 3.7 mmol/L (3.6-5.0) 04/09/19 06:02 Chloride 102.3 mmol/L (98-107) 04/09/19 06:02 Carbon Dioxide 23 mmol/L (22-30) 04/09/19 06:02 14 mmol/L 04/09/19 06:02 BUN 14 mg/dL (7-17) 04/09/19 06:02 0.6 mg/dL (0.7-1.2) L 04/09/19 06:02 Estimated GFR > 60 ml/min 04/09/19 06:02 23 % 04/09/19 06:02 Glucose 108 mg/dL (65-100) H 04/09/19 06:02 Calcium 8.3 mg/dL (8.4-10.2) L 04/09/19 06:02 402 units/L (30-135) H 04/12/19 07:00 CK-MB (CK-2) 8.6 ng/mL (0.0-4.0) H 04/07/19 04:35 CK-MB (CK-2) Rel Index 0.1 (0-4) 04/07/19 04:35 < 0.010 ng/mL (0.00-0.029) 04/07/19 04:35 NT-Pro-B Natriuret Pep 939.9 pg/mL (0-900) H 04/06/19 17:05 Yellow (Yellow) 04/07/19 18:45 Slightly-cloudy (Clear) 04/07/19 18:45 5.0 (5.0-7.0) 04/07/19 18:45 Ur Specific [place] 1.021 (1.003-1.030) 04/07/19 18:45 <15 mg/dl mg/dL (Negative) 04/07/19 18:45 Neg mg/dL (Negative) 04/07/19 18:45 Neg mg/dL (Negative) 04/07/19 18:45 Neg (Negative) 04/07/19 18:45 Neg (Negative) 04/07/19 18:45 Neg (Negative) 04/07/19 18:45 2.0 mg/dL (<2.0) 04/07/19 18:45 Ur Leukocyte Esterase Lg (Negative) 04/07/19 18:45 150.0 /HPF (0.0-6.0) H 04/07/19 18:45 4.0 /HPF (0.0-6.0) 04/07/19 18:45 U Epithel Cells (Auto) 8.0 /HPF (0-13.0) 04/07/19 18:45 1+ /HPF (Negative) 04/07/19 18:45 Few /HPF 04/07/19 18:45 Active Medications - Current Medications Current Medications: Generic Name Dose Route Start Last Admin Trade Name Freq PRN Reason Stop Dose Admin Acetaminophen 650 mg 04/06/19 22:14 04/11/19 21:38 Tylenol PO 650 mg Q4H PRN Administration Pain MILD(1-3)/Fever >100.5/MICHAEL Aspirin 81 mg 04/07/19 10:00 04/12/19 09:44 Baby Aspirin PO 81 mg DAILY KWAME Administration Furosemide 20 mg 04/12/19 10:00 04/12/19 09:44 Lasix PO 20 mg QDAY KWAME Administration Sodium Chloride 1,000 mls @ 50 mls/hr 04/06/19 23:00 04/11/19 21:43 Nacl 0.45% 1000 Ml IV Infused DIRECT KWAME Infusion Ceftriaxone Sodium 1 gm in 50 mls @ 100 mls/hr 04/07/19 10:00 04/12/19 01:03 Rocephin/Ns 1 Gm/50 Ml IV Infused Q24HR KWAME Infusion Lisinopril 2.5 mg 04/11/19 10:00 04/12/19 09:44 Zestril PO 2.5 mg QDAY KWAME Administration Metoprolol Succinate 25 mg 04/11/19 10:00 04/12/19 09:44 Toprol Xl PO 25 mg QDAY KWAME Administration Ondansetron HCl 4 mg 04/06/19 22:14 Zofran IV Q8H PRN Nausea And Vomiting Potassium Chloride 8 meq 04/12/19 10:00 Klor-Con 8 PO QDAY KWAME Risperidone 1 mg 04/07/19 10:00 04/12/19 09:44 Risperdal PO 1 mg BID KWAME Administration Sodium Chloride 10 ml 04/07/19 10:00 04/12/19 09:45 Sodium Chloride Flush Syringe 10 Ml IV 10 ml BID KWAME Administration Sodium Chloride 10 ml 04/06/19 22:14 Sodium Chloride Flush Syringe 10 Ml IV PRN PRN LINE FLUSH Temazepam 15 mg 04/08/19 00:26 04/11/19 21:38 Restoril PO 15 mg QHS PRN Administration Sleep Nutrition/Malnutrition Assess - Dietary Evaluation Nutrition/Malnutrition Findings: Nutrition Notes Start: 04/07/19 15:24 Freq: Status: Active Protocol: Document 04/07/19 15:24 RM (Rec: 04/07/19 15:29 RM [id number]) Nutrition Notes Need for Assessment generated from: MD Order Initial or Follow up Brief Note Other Pertinent Diagnosis Schizoaffetive disorder Current Diet Cardiac w/Ensure Enlive Vanilla Labs/Tests Reviewed Pertinent Medications Reviewed Height 5 ft 6 in Weight 61.235 kg Usual Body Weight 95.91 kg [place] Body Weight (kg) 59.09 BMI 21.7 Weight change and time frame 36% wt loss since sometime in 2017 Subjective/Other Information Consulted for poor oral intake and ONS diet. 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 Stated that she eats most of her meals. Stated UBW was 211 lbs sometime in 2017. Burn Absent Trauma Absent Nutrition Intervention Add Supplement/Snack (indicate name/kcal D/C Ensure Enlive /protein ) Revisit per MD consult or patient Sign Off request:
[2019-04-12] MEDS: NACL 0.45% 1000 ML 1,000 ML IV SCH (13:01)
--- NOTE | 2019-04-12 18:26 | Progress Note ---
Subjective - Reason for Consult Consult date: 04/12/19 Reason for consult: follow up - Chief Complaint Chief complaint: "I'm okay" Patient is a 59 year old AAF seen for psychiatric evaluation on the telemetry floor. She has a history of Dilated Non ischemic Cardiomyopathy, CHF, EF 16%, Patient has a PPHx schizoaffective disorder who was transferred from [place] facility because of low blood pressure, 88/50. CK is trending down. CK is 402. Today the patient is calm and cooperative during the assessment. She reports intermittent sleep and good appetite. Patient is medication compliant. No side effects noted/reported. She has been in the [place] without her clothes on at various times today. She states she is needing help from the staff and is not getting it. She voiced understanding of the treatment plan by explaining it in detail. She is reportedly medically cleared. She is eating/drinking. She states she is able to take care of herself and would like to go to [facility] but will go to inpatient at [facility]. Mental Status Exam - Vital signs Last Vital Signs Temp 98.4 F 04/12/19 11:59 Pulse 92 H 04/12/19 11:59 Resp 20 04/12/19 11:59 BP 112/56 04/12/19 11:59 Pulse Ox 100 04/12/19 11:59 - Exam Narrative exam: Orientation: time, place, person Affect: appropriate Mood: calm Thought content: no suicidal or homicidal ideation. Thought Process: More organized; less loose Associations (mild, mostly linear) Perceptions: denies AVH Speech: clear Motor activity: normal Level of consciousness: alert Memory: Intact Sleep Symptoms: trouble going to sleep Interaction: cooperative Assessment and Plan Impression: mild loose associations schizoaffective disorder, unspecified by history rhabdomyolysis addressed by medical team, ck trending down, now 402 No acute safety concerns identified. Recommendations: Her ck is trending down and she is not having adverse effects to risperdal. The benefit of continuing it at 1mg bid is greater than the risks. 1013 rescinded yesterday. dispo: Per Dr. Figueroa, transfer to [facility] on voluntary basis and from there, [facility] staff will decide if she goes to [facility] or inpatient. She is agreeable. [facility] department was notified. staffed with Dr. Figueroa
--- NOTE | 2019-04-13 12:12 | Progress Note ---
Assessment and Plan Assessment and plan: Patient is a 59 yo woman with a history of Dilated Non ischemic Cardiomyopathy, CHF, EF 16%, Schizophrenia who was transferred from [place] psychiat[facility] facility because of low blood pressure, 88/50. Cardiac enzymes shows an elevated CK of 8474 but a normal relative index of 0.2 consistent with rhabdomyolysis. Relative Hypotension, resolved: hold antihypertensives Rhabdomyolysis: continue to treat with ivf, daily CPK levels, ARF, atn, poa: treat with IVFs Patient denies any chest pain: continue to monitor Schizoaffective disorder: psych team is following, on 1012 with a sitter h/o A. fib: tele monitor advised but pt refuses to keep monitor on. h/o CHF, stable: closely monitor on IVFs d/c back to inpatient psych once rhabdo resolves, CPK <1000 medical stable to go to inpatient psych unit Mental Health DAYCARE TEACHER rescinded 1012 and today patient is calm and cooperative. History Interval history: Patient was seen and examined. Follow-up on current diagnosis Rhabdo. No new issues reported to me. Patient denies any chest pain, shortness breath, nausea/vomiting or severe headaches. Imaging, nursing note, chart, labs and old chart reviewed. Discussed with patient. Hospitalist Physical - Physical exam Narrative exam: Gen: WDWN, NAD, Awake, Alert, Orientated HEENT: NCAT, EOMI, PERRL, OP Clear Neck: supple, no adenopathy, no thyromegaly, no JVD CVS/Heart: RRR, normal S1S2, pulses present bilaterally Chest/Lungs: CTA B, Symmetrical chest expansion, good air entry bilaterally GI/Abdomen: soft, NTND, good bowel sounds, no guarding or rebound /Bladder: no suprapubic tenderness, no CVA or paraspinal tenderness Extermity/Skin: no c/c/e, no obvious rash MSK: FROM x 4 Neuro: CN 2-12 grossly intact, no new focal deficits Psych: agitated, hearing voices, difficult to re-direct - Constitutional Vitals: Temp Pulse Resp BP Pulse Ox 98.5 F 92 H 20 118/69 100 04/13/19 04:29 04/13/19 04:29 04/13/19 04:29 04/13/19 04:29 04/13/19 04:29 General appearance: Present: no acute distress Results - Labs CBC & Chem 7: 04/09/19 06:02 04/09/19 06:02 Labs: Laboratory Last Values WBC 5.5 K/mm3 (4.5-11.0) 04/09/19 06:02 RBC 3.12 M/mm3 (3.65-5.03) L 04/09/19 06:02 Hgb 8.6 gm/dl (10.1-14.3) L 04/09/19 06:02 Hct 25.0 % (30.3-42.9) L 04/09/19 06:02 MCV 80 fl (79-97) 04/09/19 06:02 MCH 28 pg (28-32) 04/09/19 06:02 MCHC 34 % (30-34) 04/09/19 06:02 RDW 19.1 % (13.2-15.2) H 04/09/19 06:02 Plt Count 127 K/mm3 (140-440) L 04/09/19 06:02 Lymph % (Auto) 20.6 % (13.4-35.0) 04/07/19 04:35 Leslie % (Auto) 9.5 % (0.0-7.3) H 04/07/19 04:35 Eos % (Auto) 0.8 % (0.0-4.3) 04/07/19 04:35 Baso % (Auto) 0.2 % (0.0-1.8) 04/07/19 04:35 Lymph # 1.2 K/mm3 (1.2-5.4) 04/07/19 04:35 Leslie # 0.6 K/mm3 (0.0-0.8) 04/07/19 04:35 Eos # 0.0 K/mm3 (0.0-0.4) 04/07/19 04:35 Baso # 0.0 K/mm3 (0.0-0.1) 04/07/19 04:35 Seg Neutrophils % 68.9 % (40.0-70.0) 04/07/19 04:35 Seg Neutrophils # 4.1 K/mm3 (1.8-7.7) 04/07/19 04:35 PT 16.4 Sec. (12.2-14.9) H 04/06/19 17:05 INR 1.36 (0.87-1.13) H 04/06/19 17:05 APTT 30.9 Sec. (24.2-36.6) 04/06/19 17:05 Sodium 136 mmol/L (137-145) L 04/09/19 06:02 Potassium 3.7 mmol/L (3.6-5.0) 04/09/19 06:02 Chloride 102.3 mmol/L (98-107) 04/09/19 06:02 Carbon Dioxide 23 mmol/L (22-30) 04/09/19 06:02 14 mmol/L 04/09/19 06:02 BUN 14 mg/dL (7-17) 04/09/19 06:02 0.6 mg/dL (0.7-1.2) L 04/09/19 06:02 Estimated GFR > 60 ml/min 04/09/19 06:02 23 % 04/09/19 06:02 Glucose 108 mg/dL (65-100) H 04/09/19 06:02 Calcium 8.3 mg/dL (8.4-10.2) L 04/09/19 06:02 730 units/L (30-135) H 04/13/19 06:48 CK-MB (CK-2) 8.6 ng/mL (0.0-4.0) H 04/07/19 04:35 CK-MB (CK-2) Rel Index 0.1 (0-4) 04/07/19 04:35 < 0.010 ng/mL (0.00-0.029) 04/07/19 04:35 NT-Pro-B Natriuret Pep 939.9 pg/mL (0-900) H 04/06/19 17:05 Yellow (Yellow) 04/07/19 18:45 Slightly-cloudy (Clear) 04/07/19 18:45 5.0 (5.0-7.0) 04/07/19 18:45 Ur Specific [place] 1.021 (1.003-1.030) 04/07/19 18:45 <15 mg/dl mg/dL (Negative) 04/07/19 18:45 Neg mg/dL (Negative) 04/07/19 18:45 Neg mg/dL (Negative) 04/07/19 18:45 Neg (Negative) 04/07/19 18:45 Neg (Negative) 04/07/19 18:45 Neg (Negative) 04/07/19 18:45 2.0 mg/dL (<2.0) 04/07/19 18:45 Ur Leukocyte Esterase Lg (Negative) 04/07/19 18:45 150.0 /HPF (0.0-6.0) H 04/07/19 18:45 4.0 /HPF (0.0-6.0) 04/07/19 18:45 U Epithel Cells (Auto) 8.0 /HPF (0-13.0) 04/07/19 18:45 1+ /HPF (Negative) 04/07/19 18:45 Few /HPF 04/07/19 18:45 Active Medications - Current Medications Current Medications: Generic Name Dose Route Start Last Admin Trade Name Freq PRN Reason Stop Dose Admin Acetaminophen 650 mg 04/06/19 22:14 04/11/19 21:38 Tylenol PO 650 mg Q4H PRN Administration Pain MILD(1-3)/Fever >100.5/MICHAEL Aspirin 81 mg 04/07/19 10:00 04/12/19 09:44 Baby Aspirin PO 81 mg DAILY KWAME Administration Furosemide 20 mg 04/12/19 10:00 04/12/19 09:44 Lasix PO 20 mg QDAY KWAME Administration Sodium Chloride 1,000 mls @ 50 mls/hr 04/06/19 23:00 04/12/19 13:01 Nacl 0.45% 1000 Ml IV 50 mls/hr DIRECT KWAME Administration Lisinopril 2.5 mg 04/11/19 10:00 04/12/19 09:44 Zestril PO 2.5 mg QDAY KWAME Administration Metoprolol Succinate 25 mg 04/11/19 10:00 04/12/19 09:44 Toprol Xl PO 25 mg QDAY KWAME Administration Ondansetron HCl 4 mg 04/06/19 22:14 Zofran IV Q8H PRN Nausea And Vomiting Potassium Chloride 8 meq 04/12/19 10:00 04/12/19 10:00 Klor-Con 8 PO 8 meq QDAY KWAME Administration Risperidone 1 mg 04/07/19 10:00 04/12/19 22:15 Risperdal PO 1 mg BID KWAME Administration Sodium Chloride 10 ml 04/07/19 10:00 04/12/19 22:15 Sodium Chloride Flush Syringe 10 Ml IV 10 ml BID KWAME Administration Sodium Chloride 10 ml 04/06/19 22:14 Sodium Chloride Flush Syringe 10 Ml IV PRN PRN LINE FLUSH Temazepam 15 mg 04/08/19 00:26 04/11/19 21:38 Restoril PO 15 mg QHS PRN Administration Sleep Nutrition/Malnutrition Assess - Dietary Evaluation Nutrition/Malnutrition Findings: Nutrition Notes Start: 04/07/19 15:24 Freq: Status: Active Protocol: Document 04/07/19 15:24 RM (Rec: 04/07/19 15:29 RM [email or web address]) Nutrition Notes Need for Assessment generated from: MD Order Initial or Follow up Brief Note Other Pertinent Diagnosis Schizoaffetive disorder Current Diet Cardiac w/Ensure Enlive Vanilla Labs/Tests Reviewed Pertinent Medications Reviewed Height 5 ft 6 in Weight 61.235 kg Usual Body Weight 95.91 kg [place] Body Weight (kg) 59.09 BMI 21.7 Weight change and time frame 36% wt loss since sometime in 2017 Subjective/Other Information Consulted for poor oral intake and ONS diet. 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 Stated that she eats most of her meals. Stated UBW was 211 lbs sometime in 2017. Burn Absent Trauma Absent Nutrition Intervention Add Supplement/Snack (indicate name/kcal D/C Ensure Enlive /protein ) Revisit per MD consult or patient Sign Off request:
[2019-04-13 12:19] VITALS: BP 102/61
[2019-04-13] MEDS: LASIX PO SCH (12:22)
[2019-04-13] MEDS: TOPROL XL PO SCH (12:22)
[2019-04-13] MEDS: RisperDAL PO SCH (12:22)
[2019-04-13] MEDS: ZESTRIL PO SCH (12:22)
[2019-04-13] MEDS: BABY ASPIRIN PO SCH (12:22)
[2019-04-13] MEDS: SODIUM CHLORIDE FLUSH SYRINGE 10 ML IV SCH (12:23)
--- NOTE | 2019-04-13 13:02 | Progress Note ---
Subjective - Reason for Consult Consult date: 04/13/19 Reason for consult: Psychiatry Follow-up - Chief Complaint Chief complaint: "I'm well" Patient is a 59 year old AAF seen for psychiatric evaluation on the telemetry floor. Today the patient was calm and cooperative during the assessment. She that she had a good night. She stated that she have a psychiatrist, but haven't seen him in a year. Per her assigned nurse, no behavioral disturbances overn ight. The patient denies SI/HI's and AVH's. She denies any side effects of her medication. Mental Status Exam - Vital signs Last Vital Signs Temp 98.0 F 04/13/19 12:16 Pulse 109 H 04/13/19 12:16 Resp 19 04/13/19 12:16 BP 102/61 04/13/19 12:16 Pulse Ox 100 04/13/19 12:16 - Exam Narrative exam: MSE: Appearance: calm, cooperative Behavior: regular eye contact Speech: regular rate and tone Mood: "okay" Affect: congruent to mood Thought Process: circumstantial Thought Content: denies SI/HI's and AVH's Motor Activity: sitting up in the bed Cognition: A/O x 3 Insight: fair Judgment: fair Assessment and Plan Impression: Hx of Schizoaffective DO. Today the patient was calm and cooperative during the assessment. Recommendation/Plan: Continue Risperdal 1 mg PO BID. Discussed possible metabolic side effects of Risperdal, she verbalized understanding. Psy sign off. Dispo: The patient can follow up with [facility] or [facility] for outpatient psy services. Will staff with Dr Ryan Figueroa.
== END 2019-04-13 16:45 | disposition home or self-care (01) | DRG 557 ==
LOC: ED 15:28 → 4A 21:52 → OBSVTOIN 04-07 08:00 → 3A 04-11 14:18
PROVIDERS: ADMIT Internal Medicine; ATTEND Internal Medicine
DX: M62.82 Rhabdomyolysis (principal); N17.0 Acute kidney failure with tubular necrosis; I50.22 Chronic systolic (congestive) heart failure; I42.9 Cardiomyopathy, unspecified; I95.9 Hypotension, unspecified; F25.9 Schizoaffective disorder, unspecified; I11.0 Hypertensive heart disease with heart failure; Z82.49 Family history of ischemic heart disease and other diseases of the circulatory system; F12.90 Cannabis use, unspecified, uncomplicated; Z79.899 Other long term (current) drug therapy; Z79.82 Long term (current) use of aspirin
CPT/HCPCS: 36415; 71045; 80048; 81001; 82550; 82553; 83880; 84484; 85025; 85027; 85610; 85730; 87040; 87116; 93005; 93010; G0378; J0696; J2060; J7030